=== PATIENT | male | born 1950 | race Caucasian/White ===

== ENCOUNTER 2021-07-17 13:25 | Outpatient (CLI) | payer OTHER, SELFPAY ==
--- NOTE | 2021-07-17 13:00 | DI.RAD_ITS ---
Exam(s) XR KNEE LT 3V AP,LAT,ZORAIDA EXAM: XR KNEE LT 3V AP,LAT,ZORAIDA CLINICAL HISTORY: knee pain. TECHNIQUE: 2D digital imaging was performed. Three views. COMPARISON: MR MRI - L LOWER EXT WO CONTRAST from 03/08/2014 FINDINGS: BONES: No acute fracture is present. No bony destructive lesion is seen. JOINTS: The knee is normally aligned. No joint effusion is seen. Moderate narrowing medial femoral ti bial joint. Minimal periarticular spurring. Remaining joint spaces well maintained. SOFT TISSUE: Vascular calcifications. IMPRESSION: Moderate degenerative changes of the medial femoral tibial joint. DATA REPOSITORY: RADIATION DOSE DELIVERED:
--- NOTE | 2021-07-17 13:00 | DI.RAD_ITS ---
Exam(s) XR KNEE RT 3V AP,LAT,ZORAIDA EXAM: XR KNEE RT 3V AP,LAT,ZORAIDA CLINICAL HISTORY: knee pain. TECHNIQUE: 2D digital imaging was performed. Three views. COMPARISON: CR XR KNEE LT 3V AP,LAT,ZORAIDA from 07/17/2021 FINDINGS: BONES: No acute fracture is present. No bony destructive lesion is seen. JOINTS: The knee is normally aligned. No joint effusion is seen. Moderate narrowing medial femoral ti bial joint space with minimal periarticular spurring. SOFT TISSUE: Normal. IMPRESSION: [id number] degenerative changes of the medial femoral tibial joint. DATA REPOSITORY: RADIATION DOSE DELIVERED:
== END 2021-07-17 13:26 | disposition home or self-care (01) ==
LOC: DIORS 13:25
PROVIDERS: PCP Family Medicine; Referring Provider Family Medicine; Visit Provider Physician Assistant
DX: M25.561 Pain in right knee (principal); M25.562 Pain in left knee; M17.0 Bilateral primary osteoarthritis of knee
CPT/HCPCS: 73562

== ENCOUNTER 2021-10-26 10:07 | Outpatient (CLI) | payer OTHER, SELFPAY ==
--- NOTE | 2021-10-26 09:45 | DI.RAD_ITS ---
Exam(s) XR SHOULDER RT COMPLETE 2+V EXAM: XR SHOULDER RT COMPLETE 2+V CLINICAL HISTORY: evaluation of pain in shoulder. TECHNIQUE: 2D digital imaging was performed of the right shoulder. Three images were obtained. AP, Y-view and axillary views were obtained. COMPARISON: No exams were available for comparison FINDINGS: BONES: No acute fracture is present. No bony destructive lesion is seen. JOINTS: No dislocation present. Mild degenerative changes are seen at the AC joint. SOFT TISSUE: Normal. IMPRESSION: Mild degenerative changes of the shoulders as described. DATA REPOSITORY: RADIATION DOSE DELIVERED:
== END 2021-10-26 10:08 | disposition home or self-care (01) ==
LOC: DIORS 10:07
PROVIDERS: PCP Family Medicine; Referring Provider Family Medicine; Visit Provider Physician Assistant
DX: M19.011 Primary osteoarthritis, right shoulder (principal)
CPT/HCPCS: 73030

== ENCOUNTER → 2022-06-14 08:28 | Outpatient (BNVA) | payer MEDICARE, SELFPAY | PROVIDERS: PCP Family Medicine; Referring Provider Family Medicine | DX: M75.81 Other shoulder lesions, right shoulder (principal); M75.21 Bicipital tendinitis, right shoulder | CPT/HCPCS: 20610; J1040 ==

== ENCOUNTER → 2022-11-19 04:01 | Outpatient (CLI) | payer MEDICARE, SELFPAY ==
--- NOTE | 2022-11-19 08:00 | DI.MRI_ITS ---
Exam(s) MR UPPER JOINT RT WO EXAM: MR UPPER JOINT RT WO CLINICAL HISTORY: ? rtc tear,rt rotator cuff tendonitis,m75.81,m75.21. TECHNIQUE: Multiplanar multisequence MRI was performed. COMPARISON: CR XR SHOULDER RT COMPLETE 2+V from 10/26/2021 FINDINGS: BONES: There is no fracture or contusion pattern. Nonspecific focus of hyperintense signal seen in th e humeral head. JOINTS: There are degenerative changes seen at the acromioclavicular joint. The glenohumeral joint i s normal. TENDONS: Supraspinatus: There is a full-thickness tear of the supraspinatus tendon anteriorly at its insertion site. Infraspinatus: Hyperintense signal is seen in the infraspinatus tendon suspicious for partial tear. Subscapularis: Unremarkable. Teres Minor: Unremarkable. Biceps and [place]: The biceps tendon is attenuated in size suspicious for at least a partial tear. MUSCLES: There is decrease in size and mild fatty atrophy of the supraspinatus muscle. The remaining muscles show normal signal and size. GLENOID LABRUM: The superior aspect of the labrum is irregular suspicious for degeneration. SOFT TISSUES: Unremarkable. LIGAMENTS: Unremarkable. OTHER: There is fluid in the subacromial subdeltoid bursa. IMPRESSION: 1. Findings of a full-thickness tear of the supraspinatus tendon with mild atrophy of the supraspinat us muscle. 2. Findings suspicious for partial tear of the infraspinatus tendon. 3. Findings suspicious for at least a partial tear of the biceps tendon. The biceps tendon appears a ttenuated within the bicipital groove. 4. Degeneration of the superior aspect of the labrum. 5. Degenerative changes seen at the acromioclavicular joint. DATA REPOSITORY:
== END ==
PROVIDERS: PCP Family Medicine; Visit Provider Student in an Organized Health Care Education/Training Program
DX: M75.121 Complete rotator cuff tear or rupture of right shoulder, not specified as traumatic (principal); M19.012 Primary osteoarthritis, left shoulder
CPT/HCPCS: 73221

== ENCOUNTER → 2022-11-27 15:03 | Outpatient (BNVA) | payer MEDICARE, SELFPAY | PROVIDERS: PCP Family Medicine; Referring Provider Family Medicine; Visit Provider Student in an Organized Health Care Education/Training Program | DX: M75.101 Unspecified rotator cuff tear or rupture of right shoulder, not specified as traumatic (principal); M19.011 Primary osteoarthritis, right shoulder; S46.211A Strain of muscle, fascia and tendon of other parts of biceps, right arm, initial encounter; X58.XXXA Exposure to other specified factors, initial encounter | CPT/HCPCS: 99214 ==

== ENCOUNTER 2023-01-17 09:23 | Day surgery (SDC) | payer MEDICARE, SELFPAY ==
[2023-01-17] VITALS (9 sets, daily range): BP systolic 107–157; BP diastolic 53–84; PULSE 54–68; RESP 13–20; TEMP 36.2–36.7; O2SAT 94–98; BMI 28.5
--- NOTE | 2023-01-17 07:19 | W.PM.DSUDISC ---
Date of service: 01/17/23 Time of Service: 16:00 Discharge Plan Disposition Patient Disposition: Home Condition: Stable Discharge Details Attending Provider: Manuel Guerrero Primary Care Provider: None,None Home Meds and New Rx's Prescriptions: New aspirin 81 mg tablet,delayed release (DR/EC) 81 mg PO DAILY 7 Days Qty: 7 0RF naproxen 250 mg tablet 250 - 500 mg PO BID PRNQty: 40 0RF Rx Instructions: take with a meal oxycodone 5 mg tablet 5 - 10 mg PO Q4H MDD 30 mg PRN (Reason: moderate to severe pain) Qty: 18 0RF Continued omeprazole 40 mg capsule,delayed release(DR/EC) 40 mg PO DAILY allopurinol 300 mg tablet 300 mg PO DAILY simvastatin 20 mg tablet 20 mg PO DAILY amlodipine 5 mg tablet 5 mg PO DAILY celecoxib [Celebrex] 200 mg capsule 200 mg PO DAILY PRN (Reason: pain) Qty: 30 3RF Discharge Instructions Additional Instructions: Surgery: Right shoulder arthroscopy with extensive debridement, distal clavicle excision, and subacromial decompression; partial supraspinatus tearing, previous proximal biceps rupture. Activity: You should gradually increase range of motion motion and use of your shoulder. You may use your shoulder for light activities. No heavy lifting, reaching overhead, or lifting away from body for approximately 6 weeks. You may use the sling whenever you are out of the house for a few weeks. At home it is best to remove the sling and rest the arm on a pillow at your side or support the operative side with your other hand. A physical therapy prescription will be sent electronically to start in about 3 weeks Prescriptions: Aspirin 81 mg take 1 daily to prevent a blood clot for 7 days Naproxen 250 mg take 1-2 every 12 hours with a meal as needed for moderate pain (do not use at the same time as Celebrex) Oxycodone 5 mg take 1-2 every 4-6 hours as needed for severe pain You may use [id number] Tylenol (acetaminophen) as needed for mild pain. These pain medications may be taken all at once or in different combinations as needed. Also, recommend Colace (docusate) as a stool softener as surgery and pain medicine cause constipation. You may try imfu-[id number] diphenhydramine (Benadryl) 25-50 mg nightly as a sleep aid Dressings: Remove shoulder bandage after 3 days. Leave the sticky Steri-Strips in place until they fall off or remove them after you shower. Cover the incisions with Band-Aids or leave them open to air. You may shower after 5 days. Follow-up: 10-[address] Guerrero You may take off the leg compression stockings this evening at home. You may also leave them on a few days longer if you have a history of leg swelling or edema. Let us know right away if you develop any redness, drainage, fevers, chest pain, or trouble breathing. Do not drink alcohol or drive for at least 24 hours after anesthesia. Please call the office during business hours with any questions or concerns. Discharge Orders Discharge Orders: Discharge Order (Routine); Ordered 01/17/23 Ordered By: Manuel Guerrero DS: Diagnosis Discharge Diagnosis (1) Arthritis of right acromioclavicular joint: Status: Acute (2) Rupture of right proximal biceps tendon: Status: Acute (3) Right rotator cuff tear: Status: Acute
--- NOTE | 2023-01-17 07:19 | W.PM.OP ---
Date of service: 01/17/23 Time of Service: 12:00 Operative Note Operative Note DATE OF PROCEDURE: 01/17/23 PRE-OP DIAGNOSIS: Right: 1. Rotator cuff tear 2. AC joint arthritis 3. Proximal biceps rupture 4. Impingement POST-OP DIAGNOSIS: same PROCEDURE: Right: 1. Arthroscopic distal clavicle excision, CPT# 10009. This involved arthroscopically exposing the underside of the acromioclavicular joint, smoothing out bone spurs, and removing approximately 5 mm of the distal clavicle and acromion so there was no bone left engaging at the joint or on the bursal rotator cuff. 2. Extensive debridement, CPT# 95641. This involved using arthroscopic hand instruments, power instruments, and radiofrequency instruments to debride areas of anterior and posterior labral tearing, SLAP tearing, rotator interval synovitis, and partial subscapularis articular tearing. Also involve removal of large AC joint subacromial cyst. 3. Subacromial decompression with partial acromioplasty, CPT# 63278. This involved using arthroscopic power instruments and a radiofrequency wand to complete a bursectomy and smooth the undersurface of the acromion. The blood and plasma laboratory assistant was medically required in order to help assist in techniques above, which require positioning the arm, holding the arthroscope, and manipulating multiple instruments and sutures at the same time. This cannot be done without the help of an experienced blood and plasma laboratory assistant. SURGEON: Manuel Guerrero DIETARY CLERK: Ramin Donnelly ANESTHESIA TYPE: General LMA/ETT and Primary Nerve Block Refer to Anesthesia Record ESTIMATED BLOOD LOSS: 10 PATHOLOGY: none sent COMPLICATIONS: None Patient was transported to: PACU Patient's condition: stable Implants: None Indications: The patient was diagnosed with the above conditions and appropriately indicated for surgical intervention. Please see complete medical record for details. Findings: Exam under anesthesia: Full range of motion, no instability Glenohumeral joint: Significant global moderately significant degenerative changes involving anterior labral fraying, posterior labral fraying, superior labral SLAP tear fraying, significant superior and anterior rotator interval synovitis, upper margin subscapularis versus biceps sling tissue tearing. Largely intact articular supraspinatus. Moderate joint space narrowing chondromalacia without any loose cartilage flaps. Subacromial space: Significant AC joint cyst with compression on the supraspinatus. Impinging distalmost clavicle on the bursal rotator cuff medially. Irregular undersurface acromion also with impingement medially on the bursal rotator cuff. Largely intact bursal supraspinatus without any significant structural tearing, injection and partial tearing laterally and centrally, unable to probe into any significant tear. Procedure Description: In the operating room, general anesthesia was induced. Bilateral shoulders were examined. The patient was positioned in the beachchair position. All bony prominences were well-padded. Preoperative antibiotics were administered. The shoulder was prepped and draped in the usual sterile fashion. The correct patient, procedure, and side of the procedure were all verified prior to incision. Starting through the posterior portal a standard complete diagnostic arthroscopy was performed of the glenohumeral joint including inspection of the long head of the biceps, anterior and superior labrum, subscapularis tendon, supraspinatus and infraspinatus tendons, and axillary recess. The glenoid and humeral head cartilage as well as the posterior labrum were inspected from an anterior viewing portal. Significant findings and interventions noted above. Of note, significant time spent was debriding anterior posterior labrum, SLAP tear, and removing synovitis recreating a glenohumeral joint without significant inflamed and impinging tissue. The biceps sling CHL SHL was also debrided back exposing a likely intact subscapularis. Prior biceps rupture without biceps tendon present in the joint. Starting through the posterior portal, the arthroscope was directed into the subacromial space. A lateral 50 yard line lateral portal was created. A combination of power instruments and a radiofrequency ablator were used to debride bursitis anteriorly, posteriorly, and laterally as well as expose and smooth bone spurring on the undersurface of the acromion. The coracoacromial ligament was partially released. The bursectomy was completed viewing laterally and working from posteriorly and the rotator cuff was thoroughly inspected with findings noted above. There was no significant supraspinatus tear, checked thoroughly given the MRI findings laterally, decision was made to omit any partial thickness repair given largely healthy appearance after removal of AC joint cyst and unable to probe into the tendon. The anterior portal was redirected towards the undersurface of the AC joint. A shaver and electrocautery device were used to clear soft tissue from the undersurface of the AC joint. The large AC joint cyst was approached on its margins from lateral to medial working with the mechanical shaver and switching stick to work around the margins of the cyst and adjacent tissue. It was resected nearly entirely with the smallest remnant far medially. The undersurface acromion had a significant bone spur at the AC joint was smoothed with the bur, the distal aspect the clavicle was abraded and smooth at the AC joint, there is at least 5 mm space between the distal clavicle and the medial aspect of the acromion. The undersurface of the distal clavicle was still impinging the medial bursal rotator cuff and was smooth and resected to avoid this problem with the bur. Care was taken to ensure there was no bone left impinging at the AC joint, onto the bursal rotator cuff, and the cyst had been adequately resected. The shoulder was drained of arthroscopic fluid. All portal sites were copiously irrigated. These incisions were closed using 3-0 Monocryl in a buried fashion and then covered with Mastisol, Steri-Strips, Xeroform, dry gauze, and ABDs. The dressings were covered and secured with Medipore tape. The operative extremity was placed into a sling for immobilization. The patient awoke from anesthesia without complication and was transferred to the recovery room in a stable condition.
[2023-01-17] MEDS: Lactated Ringers 1,000 ML 30 ML IV (10:25)
--- NOTE | 2023-01-17 11:47 | W.ANESPRE ---
General Info Date of Service Date Performed: 01/17/23 Height: 5 ft 7.5 in Weight: 83.9 kg Body Mass Index (BMI): 28.5 Surgical Procedure: Operation Date: 01/17/23 12:10 Proposed Procedure Side Surgeon p Shoulder Rotator Cuff Arthroscopic,Extensive Debridement, Subacromial Decompression, Distal Clavicle Excision Right Manuel Guerrero MD Meds Allergies and Home Medications Allergies Allergy/AdvReac Type Severity Reaction Status Date / Time No Known Allergies Allergy Verified 01/17/23 10:06 Home Medication Medication Instructions Recorded allopurinol 300 mg tablet 300 mg PO DAILY 07/17/21 amlodipine 5 mg tablet 5 mg PO DAILY 07/17/21 omeprazole 40 mg capsule,delayed 40 mg PO DAILY 07/17/21 release simvastatin 20 mg tablet 20 mg PO DAILY 07/17/21 celecoxib 200 mg capsule (Celebrex) 200 mg PO DAILY PRN pain #30 caps 01/15/22 Current Visit Medications: Current Medications Generic Name Dose Route Start Last Admin Trade Name Freq PRN Reason Stop Dose Admin Droperidol 0.625 mg 01/17/23 10:24 Droperidol 5 Mg/2 Ml Vial IVP 02/16/23 10:23 DIRECTED PRN Nausea Ephedrine Sulfate 0 mg 01/17/23 10:24 Ephedrine 25 Mg/5 Ml Syringe IVP 02/16/23 10:23 DIRECTED PRN Fentanyl 0 mcg 01/17/23 10:24 Fentanyl 100 Mcg/2 Ml Vial IVP 02/16/23 10:23 DIRECTED PRN Hydromorphone HCl 0 mg 01/17/23 10:24 Hydromorphone 2 Mg/Ml Syr IVP 02/16/23 10:23 DIRECTED PRN Ringer's Solution 1,000 mls @ 30 mls/hr 01/17/23 06:00 01/17/23 10:25 IV 02/15/23 23:59 30 mls/hr INFUSION SHAR Administration Cefazolin Sodium/Dextrose 2 gm in 50 mls @ 100 mls/hr 01/17/23 06:00 Ancef Duplex IVPB 01/17/23 16:00 PREOP SHAR IV Miscellaneous Supplies 1 each 01/17/23 06:00 Iv Access IV 02/15/23 23:59 DIRECTED SHAR Oxycodone HCl 0 mg 01/17/23 07:19 Oxycodone 5 Mg Tab PO 02/16/23 07:18 Q3H PRN PRN Pain Sodium Chloride 0 ml 01/17/23 06:00 Normal Saline Flush 10 Ml Syr IV 02/15/23 23:59 PRN PRN Sodium Chloride 0 ml 01/17/23 06:00 Normal Saline 10 Ml Vial IJ 02/15/23 23:59 DIRECTED PRN Sterile Water 0 ml 01/17/23 06:00 Water,Injection,Sterile 10 Ml Vial IJ 02/15/23 23:59 DIRECTED PRN PFSH Active Problems Active Problems: Problem Status Onset Code Arthritis of right acromioclavicular joint M19.011 Rupture of right proximal biceps tendon S46.211A Right rotator cuff tear M75.101 Primary osteoarthritis of left knee M17.12 Primary osteoarthritis of right knee M17.11 Medical History Medical History Right rotator cuff tendonitis Steroid injection: 06/14/2022; 10/26/2021 Tendonitis of long head of biceps brachii of right shoulder Hyperlipidemia HTN (hypertension) Gout Surgical History Surgical History (Updated 01/16/23 @ 14:02 by Emery Weber) History of surgery on wrist Tobacco Smoking/Tobacco Use Status: Current-Occasional Tobacco Type: cigars Alcohol Alcohol Intake: current Alcohol intake frequency: 0-2 drinks per day Alcohol type: wine and hard liquor Substance Use Substance use: Never Substance use type: does not use Vital Signs and Lab Results Vital Signs Most Recent Vital Signs in EMR: Most Recent Vital Signs Temp Pulse Resp BP Pulse Ox 36.7 C 67 18 157/65 H 98 01/17/23 09:40 01/17/23 09:40 01/17/23 09:40 01/17/23 09:40 01/17/23 09:40 Lab Results Blood Type / Crossmatch: No Data to Display Complete Blood Count: No Data to Display Complete Metabolic Panel: No Data to Display Liver Function Panel: No Data to Display Coagulation Panel: No Data to Display Cardiac Panel: No Data to Display Arterial Blood Gas: No Data to Display Venous Blood Gas: No Data to Display Pancreas Panel: No Data to Display Thyroid Panel: No Data to Display Infectious Disease: No Data to Display Blood Cultures: No Data to Display Toxicology Panel: No Data to Display Anesthesia Assessment and Plan Anesthesia History Personal History: No History of Anesthesia Complications Family History: No Family History of Anesthesia Complications Exercise Tolerance Exercise Tolerance: Metabolic Equivalents>4 Pertinent Negatives Pertinent Negatives: No Symptoms of GERD Cardiac & Pulmonary Exam Cardiac Exam: Normal S1/S2 Heart Sounds Pulmonary Exam: Clear Bilateral Breath Sounds Implantable Cardiac Device Does patient have a Pacemaker or an ICD?: No Airway Exam Known Difficult Airway: No Mallampati Class: 2 Mouth Opening: Normal (> 3cm) Thyromental Distance: Greater than 3 cm Neck Range of Motion: Full ROM Neck Circumference: Normal Teeth Condition: Normal Dentition ASA Classification ASA Score: ASA 2 Emergency Case?: No NPO Status NPO Status: NPO Clears >2 hours, Solids >8 hours Anesthesia Plan Resuscitation Status: Full Code Anesthesia Technique: General Anesthesia Airway Planned: Endotracheal Tube Monitors Used: Standard Monitors
[2023-01-17] MEDS: ceFAZolin 2 GM/50 ML BAG IVPB (12:27)
--- NOTE | 2023-01-17 13:10 | W.ANESNERVE ---
Nerve Block Single Injection Procedure Date and Time Date Performed: 01/17/23 Procedure Start: 12:03 Location Where Procedure Performed Procedure Location: Day Surgery Unit Reason Performed: Postoperative Analgesia Requesting Provider: Manuel Guerrero Timeout Performed Timeout Performed: Yes Monitoring Used ECG, Blood Pressure, SpO2, ETCO2 and See EMR for corresponding vital signs Sterility Sterility: Hand Hygiene, Surgical Cap, Surgical Mask, Sterile Gloves, Eye Protection and Chlorhexidine Sedation Given During Procedure Sedation Given (Indicate Dose Given): Versed IV (Documented in Anesthesia record) Dose:: 2mg IVP Patient Mental Status Patient Mental Status: Sedate with meaningful communication Nerve Block 1st Nerve Block: Laterality: Right Block Type: Interscalene Ultrasound Image Saved?: Yes Needle / Catheter Used: 80mm SonoPlex II Local Anesthetic Bolus (Indicate Dose Given): Lidocaine used for local infiltration of skin, Injected in 3-5ml increments after negative blood aspiration, Bupivacaine 0.5% Dose:: 0.5%/15cc (75mg) and Exparel Dose:: 1.3%/10cc (133mg) Additives (Indicate Dose Given): Epinephrine to make 1:200,000 (5mcg/ml) Dose:: 5mcg/cc (1:200,000) 75mcg Ultrasound: Sterile probe cover and gel used Nerve Stimulator: Not Used Paresthesia: None Procedure Tolerated: No Complications and Patient tolerated well Procedure Outcome: Successful Performed By: Dean Linares
[2023-01-17] MEDS: EPINEPHrine 10 MG/10 ML ML (13:54)
--- NOTE | 2023-01-17 14:56 | W.ANESPOSTOP ---
Postoperative Evaluation Date, Time and Location Date Performed: 01/17/23 Time Performed: 14:56 Patient Location: PACU Vital Signs Most Recent Imported Vital Signs: Most Recent Vital Signs Temp Pulse Resp BP Pulse Ox 36.6 C 63 14 123/84 98 01/17/23 14:40 01/17/23 14:40 01/17/23 14:40 01/17/23 14:40 01/17/23 14:40 Pain Score Most Recent Pain Score: Most Recent Pain Score Pain Level 0 01/17/23 11:55 Assessment Mental Status: Awake (Alert & Oriented to Patient Baseline) Airway and Respiratory Function: Patent airway with normal (patient baseline) respiratory exam Cardiovascular Function: Hemodynamically Stable Hydration Status: Adequately Hydrated Nausea & Vomiting: No Nausea or Vomiting Pain: Pt. Denies Any Pain Peripheral Nerve Block: Regional nerve block not resolved at time of post operative discharge
== END 2023-01-17 16:55 | disposition home or self-care (01) ==
PROVIDERS: Visit Provider Student in an Organized Health Care Education/Training Program
PROC: (CPT 29827; principal; 2023-01-17 12:00)
DX: M19.011 Primary osteoarthritis, right shoulder (principal); S46.211A Strain of muscle, fascia and tendon of other parts of biceps, right arm, initial encounter; M17.12 Unilateral primary osteoarthritis, left knee; X58.XXXA Exposure to other specified factors, initial encounter
CPT/HCPCS: 29827; 29824; 29823; 29826; 64415; 76942; J0131; J0171; J0690; J1100; J1885; J2001; J2250; J2371; J2405; J2704

== ENCOUNTER → 2023-01-29 10:23 | Outpatient (BNVA) | payer MEDICARE, SELFPAY | PROVIDERS: PCP Nurse Practitioner Pediatrics; Referring Provider Nurse Practitioner Pediatrics; Visit Provider Student in an Organized Health Care Education/Training Program | DX: S46.211D Strain of muscle, fascia and tendon of other parts of biceps, right arm, subsequent encounter (principal); X58.XXXD Exposure to other specified factors, subsequent encounter ==

== ENCOUNTER 2023-02-26 09:22 | Outpatient (CLI) | payer MEDICARE, SELFPAY ==
--- NOTE | 2023-02-26 08:15 | DI.RAD_ITS ---
Exam(s) XR SHOULDER RT COMPLETE 2+V EXAM: XR SHOULDER RT COMPLETE 2+V CLINICAL HISTORY: right shoulder f/u. TECHNIQUE: 2D digital imaging was performed. COMPARISON: CR XR SHOULDER RT COMPLETE 2+V from 10/26/2021 FINDINGS: Two views. No evidence of fracture or dislocation. No soft tissue calcifications in the non diminished subacrom ial space. Mild degenerative changes evident. The appearance is similar to September 2021. Bone density normal. No osseous lesions. Coracoid process is intact. IMPRESSION: As above. No radiographic change compared to 10/26/2021. DATA REPOSITORY: RADIATION DOSE DELIVERED:
== END 2023-02-26 09:23 | disposition home or self-care (01) ==
LOC: DIORS 09:23
PROVIDERS: PCP Nurse Practitioner Pediatrics; Referring Provider Nurse Practitioner Pediatrics; Visit Provider Student in an Organized Health Care Education/Training Program
DX: S46.211A Strain of muscle, fascia and tendon of other parts of biceps, right arm, initial encounter (principal); M19.011 Primary osteoarthritis, right shoulder; M75.101 Unspecified rotator cuff tear or rupture of right shoulder, not specified as traumatic; X58.XXXA Exposure to other specified factors, initial encounter; Y93.B9 Activity, other involving muscle strengthening exercises
CPT/HCPCS: 73030

== ENCOUNTER → 2023-04-09 08:28 | Outpatient (BNVA) | payer MEDICARE, SELFPAY | PROVIDERS: PCP Nurse Practitioner Pediatrics; Referring Provider Nurse Practitioner Pediatrics; Visit Provider Student in an Organized Health Care Education/Training Program | DX: M19.011 Primary osteoarthritis, right shoulder (principal); M75.101 Unspecified rotator cuff tear or rupture of right shoulder, not specified as traumatic; S46.211D Strain of muscle, fascia and tendon of other parts of biceps, right arm, subsequent encounter; X58.XXXD Exposure to other specified factors, subsequent encounter | CPT/HCPCS: 99213 ==

== ENCOUNTER → 2023-04-18 03:51 | Outpatient (CLI) | payer MEDICARE, SELFPAY ==
--- NOTE | 2023-04-18 08:20 | DI.MRI_ITS ---
Exam(s) MR UPPER JOINT RT WO EXAM: MR UPPER JOINT RT WO CLINICAL HISTORY: R SHOULDER PAIN,rt rotator cuff tear,m75.101. TECHNIQUE: Multiplanar multisequence MRI was performed. COMPARISON: MRI right shoulder 19 November 2022. Plain films 26 February 2023. FINDINGS: BONES: There is no fracture or contusion pattern. No change small high signal focus in the humeral head. JOINTS:The acromioclavicular joint contains some fluid and shows mild spurring. The glenohumeral feroz nt shows mild degenerative changes. Minimal fluid. TENDONS: Supraspinatus: Diffusely thickened appearance with intermediate signal consistent with tendinosis.. No change in appearance of the full-thickness tear anteriorly with retraction of fibers. Infraspinatus: Mildly increased signal. No visible focal tear. Subscapularis: Unremarkable. Teres [place]: Unremarkable. Biceps and [place]: Biceps tendon is again noted to be severely attenuated proximally suspicious for s evere partial tear. Appearance appears unchanged. MUSCLES: Moderate to severe fatty atrophy of the supraspinatus, unchanged. GLENOID LABRUM: Degenerative changes. No focal tear. SOFT TISSUES: Mild anterior soft tissue edema. OTHER: Subacromial and subdeltoid bursae show moderate fluid.. IMPRESSION: No change in appearance of supraspinatus tendinosis with anterior full-thickness tear and muscle atro phy. No change in appearance of infraspinatus tendinosis. No change in appearance of severe attenuation of the proximal biceps tendon. No new findings. DATA REPOSITORY:
== END ==
PROVIDERS: PCP Nurse Practitioner Pediatrics; Visit Provider Student in an Organized Health Care Education/Training Program
DX: M25.511 Pain in right shoulder (principal)
CPT/HCPCS: 73221

== ENCOUNTER → 2023-04-24 08:25 | Outpatient (BNVA) | payer MEDICARE, SELFPAY | PROVIDERS: PCP Nurse Practitioner Pediatrics; Referring Provider Nurse Practitioner Pediatrics; Visit Provider Student in an Organized Health Care Education/Training Program | DX: M19.011 Primary osteoarthritis, right shoulder (principal); M75.101 Unspecified rotator cuff tear or rupture of right shoulder, not specified as traumatic; S46.211D Strain of muscle, fascia and tendon of other parts of biceps, right arm, subsequent encounter; X58.XXXD Exposure to other specified factors, subsequent encounter | CPT/HCPCS: 99214 ==

== ENCOUNTER 2023-05-02 10:21 | Day surgery (SDC) | payer MEDICARE, SELFPAY ==
--- NOTE | 2023-05-02 07:20 | W.PM.DSUDISC ---
Date of service: 05/02/23 Time of Service: 15:00 Discharge Plan Disposition Patient Disposition: Home Discharge Details Attending Provider: Manuel Guerrero Primary Care Provider: Coleen Amato Home Meds and New Rx's Prescriptions: No Action omeprazole 40 mg capsule,delayed release(DR/EC) 40 mg PO DAILY allopurinol 300 mg tablet 300 mg PO DAILY simvastatin 20 mg tablet 20 mg PO HS amlodipine 5 mg tablet 5 mg PO DAILY Discharge Orders Discharge Orders: Discharge Order (Routine); Ordered 05/02/23 Ordered By: Ramin Donnelly
[2023-05-02 10:42] VITALS: BP 146/75; PULSE 75; RESP 16; TEMP 36.4; O2SAT 96
[2023-05-02] MEDS: Lactated Ringers 1,000 ML 30 ML IV (11:55)
--- NOTE | 2023-05-02 12:48 | PDOC.ANES ---
Date of service: 05/02/23 Time of Service: 12:48 Anesthesia Note Report Anesthesia Note: New onset murmur. Confirmed by DSU RN Alena, myself, and Yumiko Trevino. Appears to be louder in the mitral zone but was heard in all auscultation points. Not appreciated in any other note, patient has no history of murmur (normal S1/S2 in all other notes). Patient is postponed until Echocardiogram and cards consult can be obtained. Discussed with patient and all questions answered.
--- NOTE | 2023-05-02 16:21 | NUR.NOTE ---
Nursing Note: [id number] This RN auscultated heart murmur not noted prior in patient's chart. Anesthesia notified to assess further. After assessment, patient postponed pending cardiac clearance.
== END 2023-05-02 10:22 | disposition home or self-care (01) ==
LOC: SUR 10:21
PROVIDERS: PCP Nurse Practitioner Pediatrics; Visit Provider Student in an Organized Health Care Education/Training Program
DX: Z53.09 Procedure and treatment not carried out because of other contraindication (principal)
CPT/HCPCS: J0665; J1100; J2001; J2405; J2704

== ENCOUNTER 2023-05-09 10:58 | Outpatient (CLI) | payer MEDICARE, SELFPAY ==
--- NOTE | 2023-05-09 11:15 | RT.EKG_ITS ---
APPROVED REPORT Exam: Resting ECG Reason for Exam: baseline Patient Location: O HR:74 bpm ECG Measurements Heart Rate 74 AXIS MS 180 P 23 QRSd 93 QRS -40 QT 391 T 27 QTc 434 Conclusion Sinus rhythm...normal P axis, V-rate 50- 99 Left anterior fascicular block...axis(240,-40), init forces inf Abnormal R-wave progression, late transition...QRS area<0 in V5/V6 Left ventricular hypertrophy...multiple voltage criteria I have reviewed and interpreted ECG and agree with software generated interpretation.
== END 2023-05-09 10:59 | disposition home or self-care (01) ==
LOC: DI.CARD 11:27
PROVIDERS: PCP Nurse Practitioner Pediatrics; Referring Provider Nurse Practitioner Pediatrics; Visit Provider Internal Medicine Interventional Cardiology
DX: R01.1 Cardiac murmur, unspecified (principal)
CPT/HCPCS: 93010

== ENCOUNTER → 2023-05-09 10:58 | Outpatient (BNVA) | payer MEDICARE, SELFPAY | PROVIDERS: PCP Nurse Practitioner Pediatrics; Referring Provider Nurse Practitioner Pediatrics; Visit Provider Internal Medicine Interventional Cardiology | DX: I10 Essential (primary) hypertension (principal); E78.5 Hyperlipidemia, unspecified; Z01.810 Encounter for preprocedural cardiovascular examination; R01.1 Cardiac murmur, unspecified | CPT/HCPCS: 93005; 99213 ==

== ENCOUNTER → 2023-05-17 01:53 | Outpatient (CLI) | payer MEDICARE, SELFPAY ==
--- NOTE | 2023-05-17 07:00 | DI.US_ITS ---
APPROVED REPORT EXAM: Comprehensive 2D, Doppler, and color-flow Echocardiogram Patient Location: Out-Patient Oenologist: Cathy Fung RDCS ([facility]) Indications: Surgical clearance, Heart Murmur Other Information Study Quality: Good Conclusion Normal left ventricular wall thickness and chamber size. Ejection fraction is 60%. Wall motion is n ormal. Diastolic function is normal for age Normal right ventricular size and function Both atria are normal in size There are no structural valvular abnormalities There is trace to mild aortic regurgitation, mild mitral and trace tricuspid regurgitation Estimated right ventricular systolic pressure is 24 mm Wall motion Left Ventricle The left ventricle is normal size. The left ventricular systolic function is normal. The left ventric ular ejection fraction is within the normal range. There is normal left ventricular wall thickness. T here is normal LV segmental wall motion. There is no ventricular septal defect visualized. LVEF is 60 %. Right Ventricle The right ventricle is normal size. The right ventricular systolic function is normal. Atria The left atrium size is normal. The right atrium size is normal. The interatrial septum is intact wit h no evidence for an atrial septal defect. Aortic Valve Aortic valve is trileaflet. There is no aortic valvular stenosis. Trace to mild aortic regurgitation . Mitral Valve The mitral valve is normal in structure. No evidence of mitral valve stenosis. Trace to mild mitral r egurgitation. Tricuspid Valve The tricuspid valve is normal in structure. There is no tricuspid valve stenosis. Trace tricuspid reg urgitation. The RVSP is 24.2 mmHg. Pulmonic Valve The pulmonary valve is normal in structure. There is no pulmonic valvular stenosis. Trace pulmonic re gurgitation. Great Vessels The aortic root is normal in size. The ascending aorta is mildly dilated. Aortic arch is not well vis ualized. IVC is normal in size and collapses >50% with inspiration. Pericardium There is no pericardial effusion. 2D Dimensions IVSD d PLAX 1.03 cm M: 0.6-1.2 Ao Root d 3.46 cm M: 3.1 - 3.7 LVPW d PLAX 1.01 cm M: 0.6 - 1.2 Ao Asc Diam d 3.58 cm M: 2.6 - 3.4 LVID d PLAX 4.85 cm M: 4.2 - 5.8 LVDs 3.21 cm M: 2.5 - 4.0 LV EF Teichholz 62.4 % FS 33.73 % LV EDV (Teich) 110.2 mL LV ESV (Teich) 41.4 mL Auto EF LV EDV A4C 99.1 mL LV EDV A2C 115.1 mL LV EDV BP 108.1 mL LV ESV A4C 43.4 mL LV ESV A2C 49.2 mL LV ESV BP 46.3 mL LVEF(%) A4C 56.2 % LVEF(%) A2C 57.2 % LVEF(%) BP 57.2 % LV SV A4C 55.7 ml LV SV A2C 65.9 ml LV SV BP 61.9 ml LV CO A4C 3.9 L/min LV CO A2C 4.5 L/min LV CO BP 4.2 L/min HR A4C 69.91 BPM HR A2C 68.84 BPM LV EDV Index (BP) LV Strain Long Pk Overal Avg (s) 18.01 RV Strain Global Peak Long. Strain A4C 9.87 Global Peak Long. Strain A4C FW 3.96 LA Volume LA Length A4C 4.7 cm LA Length A2C 5.2 cm LA Area A4C s 13.62 cm2 LA Area A2C s 19.35 cm2 LA Vol A4C A-L 33.85 mL LA Vol A2C A-L 61.06 mL LA Vol Biplane A-L 48.1 mL LA Vol/BSA A4C A-L LA Vol/BSA A2C A-L LA Vol/BSA BP A-L 23.8 mL/m2 LA Vol A4C MOD 31.2 mL LA Vol A2C MOD 57.1 mL LA Vol BP MOD 44.5 mL RA Volume RA Area A4C 15.1 cm2 RA ESV A4C (A-L) 39.3mL RA Vol/BSA A4C A-L RA Length A4C 4.9 cm RA ESV A4C (MOD) 37.8mL LV Diastology MV E' medial 0.070 (>0.07 m/s) MV E Vmax 0.87 (0.4-1.3 m/s) MV E/E' MED 12.45 (<14) MV A Vmax 1.00 (0.4-1.3 m/s) MV E' lateral 0.080 (>0.1 m/s) E/A Ratio 0.9 MV E/E' LAT 10.83 (<14) MV E' Average 0.075 m/s MV E/E'(average) 11.58 Aortic Valve AoV Vmax 1.93 m/s LVOT Vmax 1.15 m/s AoV Peak Grad 27.6 mmHg LVOT Peak Grad 5.2 mmHg AoV Area (Vmax) 2.11 cm2 LVOT VTI 0.286 m AoV VTI 0.408 m LVOT Mean Grad 3.7 mmHg AoV Mean Wiley. 1.28 m/s LVOT SV 101.73 mL AoV Mean Grad 7.6 mmHg LVOT Diam s 2.10 cm AoV Area (VTI) 2.50 cm2 AV Regurg Peak Gr. 40.40 mmHg Velocity Ratio 0.60 AR Decel [place] 0.9m/sec2 AR DT 3556 msec AR PHT 1031 msec AR Vmax 3.18 m/s Mitral Valve MV DT 400 (160-240 msec) MV Vmax TIPS 0.92 m/s MV Mean Grad 1.4 (<2mmHg) MV VTI 0.307 m Pulmonary Valve PV Vmax 1.13 (0.5-1.5 m/s) RVOT Vmax 0.85 m/s PV Peak Grad 5.1 mmHg RVOT Peak Gr. 2.9 mmHg PV Mean Wiley 0.84 m/s RVOT VTI 0.175 m PV Mean Grad 3.1 mmHg RVOT Mean Gr. 1.6 mmHg Tricuspid Valve RA Pressure 3.00 mmHg TR Vmax 2.30 m/s TV S' 0.17 m/s TR Peak Grad 21.2 mmHg RVSP (TR) 24.2 mmHg
== END ==
PROVIDERS: PCP Nurse Practitioner Pediatrics; Visit Provider Student in an Organized Health Care Education/Training Program
DX: R01.1 Cardiac murmur, unspecified (principal)
CPT/HCPCS: 93306

== ENCOUNTER 2023-05-23 09:22 | Day surgery (SDC) | payer MEDICARE, SELFPAY ==
[2023-05-23] VITALS (9 sets, daily range): BP systolic 100–156; BP diastolic 42–67; PULSE 69–75; RESP 15–17; TEMP 36.4–37.2; O2SAT 93–97; BMI 30.5
--- NOTE | 2023-05-23 07:24 | W.PM.OP ---
Date of service: 05/23/23 Time of Service: 14:00 Operative Note Operative Note DATE OF PROCEDURE: 05/23/23 PRE-OP DIAGNOSIS: Right: 1. Complex rotator cuff tear POST-OP DIAGNOSIS: same PROCEDURE: Right: 1. Massive rotator cuff repair, CPT# 00543. This involved repair of the subscapularis, supraspinatus, and infraspinatus using anchors and sutures to reattach the rotator cuff back to the footprint of the lesser and greater tuberosity. 2. Extensive debridement, CPT# 75186. This involved using arthroscopic hand instruments, power instruments, and radiofrequency instruments to debride significant complex delaminated articular supraspinatus tearing, debride anterior and rotator interval adhesions, debride the anterior, superior, and posterior labrum. Release adhesions about the rotator interval and superior glenohumeral joint. Release adhesions between the bursal rotator cuff acromion and distal clavicle. The staffing assistant was medically required in order to help assist in techniques above, which require positioning the arm, holding the arthroscope, and manipulating multiple instruments and sutures at the same time. This cannot be done without the help of an experienced staffing assistant. SURGEON: Manuel Guerrero RESIDENTIAL CONSTRUCTION INSTRUCTOR: Ramin Donnelly ANESTHESIA TYPE: Local By Surgeon, General LMA/ETT and Primary Nerve Block Refer to Anesthesia Record ESTIMATED BLOOD LOSS: 5 PATHOLOGY: none sent COMPLICATIONS: None Patient was transported to: PACU Patient's condition: stable Implants: Arthrex: 4.75mm SwiveLocks x 2 and 5.5mm SL x1 Indications: The patient was diagnosed with the above conditions and appropriately indicated for surgical intervention. Please see complete medical record for details. Findings: Exam under anesthesia: Full range of motion, no instability Glenohumeral joint: Worsened of previous subscapularis tendon tear with more moderately sized mid to upper lateral footprint tearing and involvement. Recurrent anterior superior and posterior labral fraying tearing. Significant rotator interval synovitis. Significant complex articular sided delaminated supraspinatus tendon tearing and capsulitis. Intact other layers of the supraspinatus without clear connection to the bursal space. Subacromial space: Moderate medial rotator cuff acromion and distal clavicle bursal scarring. Thinly intact bursal supraspinatus. Once this veil of tissue localized centrally to anterior, as shown on the MRI, was elevated it revealed the known large complex delaminated nearly complete supraspinatus and partial infraspinatus tendon tearing. Procedure Description: In the operating room, general anesthesia was induced. Bilateral shoulders were examined. The patient was positioned in the beachchair position. All bony prominences were well-padded. Preoperative antibiotics were administered. The shoulder was prepped and draped in the usual sterile fashion. The correct patient, procedure, and side of the procedure were all verified prior to incision. 0.25% bupivacaine containing epinephrine was infiltrated about the planned portals. Starting through the posterior portal a standard complete diagnostic arthroscopy was performed of the glenohumeral joint including inspection of the long head of the biceps, anterior and superior labrum, subscapularis tendon, supraspinatus and infraspinatus tendons, and axillary recess. The glenoid and humeral head cartilage as well as the posterior labrum were inspected from an anterior viewing portal. Significant time was spent debriding the rotator interval synovitis, releasing anterior capsular adhesions, contouring the anterior superior and posterior labrum as well as debriding the superior capsulitis. A rigid cannula was inserted anteriorly, the subscapularis tear was evaluated and good quality for repair. It did seem relatively fresh and not chronic like the complex degenerative superior rotator cuff tissue. The exposed lesser tuberosity was prepared with a rasp. The 90 degree lasso used to shuttle a FiberTape around the body of the tear, which was secured to an anterior 4.75 mm knotless SwiveLock anchor with good tissue hold and reduction to the lesser tuberosity. The knotless remaining suture was then shuttled through the anterior lateral corner of the subscapularis and secured back through the anchor eyelet mechanism completing the repair, which was stable through probing and external rotation. There was no restriction to motion. Significant time was then spent evaluating and discerning the best treatment for the highly complex, chronic and degenerative supraspinatus tendon tear considering the patient high function but advanced age. The arthroscope was directed into the subacromial space and bursal adhesions were released. I cannula was left in the posterior portal in the glenohumeral joint to work [id number]. Liberator and elevators were used laterally after spinal needle localization to reveal the known high-grade supraspinatus tear, with the supraspinatus being elevated from lateral to medial taking care to preserve tendon length. After the thin veil of lateral supraspinatus was released it did reveal the large full-thickness severity of the tear. The articular sided delaminated defect, as seen on MRI, was complex and retracted in different planes. It was highly abnormal with some apparent calcifications, other areas that were friable to grasp, and not amenable to retraction or any repair. It was then meticulously dissected off the remaining viable layers and resected with the mechanical shaver and radiofrequency ablator. The remaining supraspinatus elevators best possible off the superior glenoid articularly and bursal immediately from the distal clavicle and acromion. Although it was thin as it was only bursal layers of the supraspinatus, it could be reduced over the thoroughly prepared greater tuberosity bony footprint. The central portion was the thinnest and had the appearance of muscle atrophy medially. The posterior to infraspinatus junction had more briceno tendon and muscle appearance. The decision was made to proceed with repair of this large remnant supraspinatus as opposed to resection of all this supraspinatus tissue only to place a similar thickness dermal allograft, which would not function as a tendon. Tear was carefully prepared, greater tuberosity with a rasp and shaver, and the margins discerned anteriorly and posteriorly. A single lateral row was planned given the tissue coverage moderately from medial to lateral and the nature of the tendon. The repair was visualized articular as well and demonstrated with the suture passer to ensure including all layers of this supraspinatus tissue as well as the junction and healthier infraspinatus tissue involving the partial tearing more wrapping around posteriorly. The self retrieving suture passer was used to place an inverted horizontal mattress FiberTape incorporating the posterior supraspinatus and anterior infraspinatus with a FiberLink suture tape in cinch mode placed centrally in a ripstop configuration. These repair sutures were secured to a lateral posterior 5.5 mm suture anchor with excellent tissue hold and bone fixation. One of the sliding sutures then placed through some compressed dogear tissue and used to reduce this tissue and add additional fixation posterior laterally. The remaining supraspinatus tissue was again examined and appropriate for repair. The self retrieving suture passer was again used to place an inverted horizontal mattress suture spaced widely with large tissue grabs in this thin and degenerative tissue. The suture tape had good tissue hold and the scorpion was then used to place a suture tape FiberLink in cinch mode centrally again in ripstop configuration. These repair sutures were localized to an anterior lateral row 4.75 mm SwiveLock anchor and secured nicely with reduction of tissue over the previous large central to anterior greater tuberosity supraspinatus defect. Lastly, the knotless remaining repair suture from this last anchor was shuttled through a tight but small defect between the anterior and posterior repairs and used to add additional suture security centrally in the repair. The repair was tested and inspected through shoulder range of motion and was stable and secure. The rotator cuff tendon and the muscle more medially had more appropriate tension and overall appearance as well. The shoulder was drained of arthroscopic fluid. All portal sites were copiously irrigated. These incisions were closed using 3-0 Monocryl in a buried fashion and then covered with Mastisol, Steri-Strips, Xeroform, dry gauze, and ABDs. The dressings were covered and secured with Medipore tape. The operative extremity was placed into a sling for immobilization. The patient awoke from anesthesia without complication and was transferred to the recovery room in a stable condition.
--- NOTE | 2023-05-23 08:07 | W.ANESPRE ---
General Info Height: 5 ft 7.5 in Weight: 89.896 kg Body Mass Index (BMI): 30.5 Surgical Procedure: Operation Date: 05/23/23 11:55 Proposed Procedure Side Surgeon p Shoulder Rotator Cuff Arthroscopic w/Extensive Debridement, Possible Allograft Superior Capsular Reconstruction Right Manuel Guerrero MD Meds Allergies and Home Medications Allergies Allergy/AdvReac Type Severity Reaction Status Date / Time No Known Allergies Allergy Verified 05/23/23 09:38 Home Medication Medication Instructions Recorded allopurinol 300 mg tablet 300 mg PO DAILY 07/17/21 amlodipine 5 mg tablet 5 mg PO DAILY 07/17/21 omeprazole 40 mg capsule,delayed 40 mg PO DAILY 07/17/21 release simvastatin 20 mg tablet 20 mg PO HS 07/17/21 Current Visit Medications: Current Medications Generic Name Dose Route Start Last Admin Trade Name Freq PRN Reason Stop Dose Admin Ringer's Solution 1,000 mls @ 30 mls/hr 05/23/23 06:00 IV 05/23/23 23:59 INFUSION SHAR Cefazolin Sodium/Dextrose 2 gm in 50 mls @ 100 mls/hr 05/23/23 06:00 Ancef Duplex IVPB 05/23/23 23:59 PREOP SHAR IV Miscellaneous Supplies 1 each 05/23/23 06:00 Iv Access IV 05/23/23 23:59 DIRECTED SHAR Sodium Chloride 0 ml 05/23/23 06:00 Normal Saline Flush 10 Ml Syr IV 05/23/23 23:59 PRN PRN Sodium Chloride 0 ml 05/23/23 06:00 Normal Saline 10 Ml Vial IJ 05/23/23 23:59 DIRECTED PRN Sterile Water 0 ml 05/23/23 06:00 Water,Injection,Sterile 10 Ml Vial IJ 05/23/23 23:59 DIRECTED PRN PFSH Active Problems Active Problems: Problem Status Onset Code Heart murmur R01.1 Preop cardiovascular exam Z01.810 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 stated that he felt last time he had a block he got queasy and felt like he was going to pass out Surgical History Surgical History Hx of arthroscopic knee surgery History of surgery on wrist Tobacco Smoking/Tobacco Use Status: Current-Occasional Tobacco Type: cigars Alcohol Alcohol Intake: current Alcohol intake frequency: 0-2 drinks per day Alcohol type: wine and hard liquor Substance Use Substance use: Never Substance use type: does not use Vital Signs and Lab Results Lab Results Blood Type / Crossmatch: No Data to Display Complete Blood Count: No Data to Display Complete Metabolic Panel: No Data to Display Liver Function Panel: No Data to Display Coagulation Panel: No Data to Display Cardiac Panel: No Data to Display Arterial Blood Gas: No Data to Display Venous Blood Gas: No Data to Display Pancreas Panel: No Data to Display Thyroid Panel: No Data to Display Infectious Disease: No Data to Display Blood Cultures: No Data to Display Toxicology Panel: No Data to Display Imaging and Studies Imaging and Studies Study information below may be from another EMR and interpreted by another provider. Please see original notes in EMR for more complete details. EKG Summary: 05/25: sinus, LAFB, LVH. Echocardiogram Summary: 05/25: LVEF 60%, normal thickness. mild AR/MR, trace TR. Anesthesia Assessment and Plan Anesthesia History Personal History: No History of Anesthesia Complications Family History: No Family History of Anesthesia Complications Exercise Tolerance Exercise Tolerance: Metabolic Equivalents>4 Implantable Cardiac Device Does patient have a Pacemaker or an ICD?: No Airway Exam Known Difficult Airway: No Mallampati Class: 2 Mouth Opening: Normal (> 3cm) Thyromental Distance: Greater than 3 cm Neck Range of Motion: Full ROM Neck Circumference: Normal Teeth Condition: Normal Dentition ASA Classification ASA Score: ASA 2 Anesthesia Plan Resuscitation Status: Full Code Anesthesia Technique: General Anesthesia Airway Planned: Endotracheal Tube Pain Management: Surgeon and patient request nerve block Monitors Used: Standard Monitors Preoperative Comments:: 73 yo male for shoulder. Sig PMHx: HTN (amlodipine), GERD (omeprazole), MICAH, CKD, occ cigars. Recent evaluation due to new onset murmur at last visit. Patient doing well at this point, ECHO and cards note reviewed.
[2023-05-23] MEDS: Lactated Ringers 1,000 ML 30 ML IV (10:22)
--- NOTE | 2023-05-23 11:04 | PDOC.DSDIS_ITS ---
Date of service: 05/23/23 Time of Service: 16:00 Discharge Plan Disposition Patient Disposition: Home Condition: Stable Discharge Details Attending Provider: Manuel Guerrero Primary Care Provider: Coleen Amato Home Meds and New Rx's Prescriptions: New aspirin 81 mg tablet,delayed release (DR/EC) 81 mg PO DAILY 7 Days Qty: 7 0RF naproxen 250 mg tablet 250 - 500 mg PO BID PRNQty: 40 0RF Rx Instructions: take with a meal oxycodone 5 mg tablet 5 - 10 mg PO Q4H MDD 30 mg PRN (Reason: moderate to severe pain) Qty: 18 0RF Continued omeprazole 40 mg capsule,delayed release(DR/EC) 40 mg PO DAILY allopurinol 300 mg tablet 300 mg PO DAILY simvastatin 20 mg tablet 20 mg PO HS amlodipine 5 mg tablet 5 mg PO DAILY Discharge Instructions Additional Instructions: Surgery: Right shoulder arthroscopy with massive rotator cuff repair ( subscapularis, supraspinatus, and infraspinatus) and revision extensive debridement. Activity: For 6 weeks, you should keep your arm at your side in a neutral position at all times except for physical therapy. Do not try to lift or raise your arm using your own muscles. You should use the sling whenever you are out of the house. You may have to adjust the abduction pillow or remove it for comf ort. At home it is best to remove the sling and rest the arm on a pillow at your side or support the operative side with your other hand. You may allow the arm to dangle at your side. A physical therapy prescription will be sent electronically to begin in about 3 weeks. CONSERVATIVE protocol. Prescriptions: Aspirin 81 mg take 1 daily to prevent a blood clot for 7 days Naproxen 250 mg take 1-2 every 12 hours with a meal as needed for moderate pain Oxycodone 5 mg take 1-2 every 4-6 hours as needed for severe pain You may use [id number] Tylenol (acetaminophen) as needed for mild pain. These pain medications may be taken all at once or in different combinations as needed. Also, recommend Colace (docusate) as a stool softener as surgery and pain medicine cause constipation. You may try [id number] diphenhydramine (Benadryl) 25-50 mg nightly as a sleep aid Dressings: Remove shoulder bandage after 3 days. Leave the sticky Steri-Strips in place until they fall off or remove them after you shower. Cover the incisions with Band-Aids or leave them open to air. You may shower after 5 days. Follow-up: 10-[address] Guerrero You may take off the leg compression stockings this evening at home. You may also leave them on a few days longer if you have a history of leg swelling or edema. Let us know right away if you develop any redness, drainage, fevers, chest pain, or trouble breathing. Do not drink alcohol or drive for at least 24 hours after anesthesia. Please call the office during business hours with any questions or concerns. Discharge Orders Discharge Orders: Discharge Order (Routine); Ordered 05/23/23 Ordered By: Ramin Donnelly DS: Diagnosis Discharge Diagnosis (1) Right rotator cuff tear: Status: Acute
--- NOTE | 2023-05-23 11:41 | ANES.PREOP_ITS ---
General Info Date of Service Date Performed: 05/23/23 Height: 5 ft 7.5 in Weight: 89.8 kg Body Mass Index (BMI): 30.5 Surgical Procedure: Operation Date: 05/23/23 11:55 Proposed Procedure Side Surgeon p Shoulder Rotator Cuff Arthroscopic w/Extensive Debridement, Possible Allograft Superior Capsular Reconstruction Right Manuel Guerrero MD Meds Allergies and Home Medications Allergies Allergy/AdvReac Type Severity Reaction Status Date / Time No Known Allergies Allergy Verified 05/23/23 09:38 Home Medication Medication Instructions Recorded allopurinol 300 mg tablet 300 mg PO DAILY 07/17/21 amlodipine 5 mg tablet 5 mg PO DAILY 07/17/21 omeprazole 40 mg capsule,delayed 40 mg PO DAILY 07/17/21 release simvastatin 20 mg tablet 20 mg PO HS 07/17/21 Current Visit Medications: Current Medications Generic Name Dose Route Start Last Admin Trade Name Freq PRN Reason Stop Dose Admin Ringer's Solution 1,000 mls @ 30 mls/hr 05/23/23 06:00 05/23/23 10:22 IV 05/23/23 23:59 30 mls/hr INFUSION [facility] Administration Cefazolin Sodium/Dextrose 2 gm in 50 mls @ 100 mls/hr 05/23/23 06:00 Ancef Duplex IVPB 05/23/23 23:59 PREOP [facility] IV Miscellaneous Supplies 1 each 05/23/23 06:00 Iv Access IV 05/23/23 23:59 DIRECTED SHAR Oxycodone HCl 0 mg 05/23/23 11:02 Oxycodone 5 Mg Tab PO 06/22/23 11:01 Q3H PRN PRN Pain Sodium Chloride 0 ml 05/23/23 06:00 Normal Saline Flush 10 Ml Syr IV 05/23/23 23:59 PRN PRN Sodium Chloride 0 ml 05/23/23 06:00 Normal Saline 10 Ml Vial IJ 05/23/23 23:59 DIRECTED PRN Sterile Water 0 ml 05/23/23 06:00 Water,Injection,Sterile 10 Ml Vial IJ 05/23/23 23:59 DIRECTED PRN PFSH Active Problems Active Problems: Problem Status Onset Code Heart murmur R01.1 Preop cardiovascular exam Z01.810 Arthritis of right acromioclavicular joint M19.011 Rupture of right proximal biceps tendon S46.211A Right rotator cuff tear M75.101 Primary osteoarthritis of left knee M17.12 Primary osteoarthritis of right knee M17.11 Medical History Medical History Vitamin D deficiency Spondylitis Diverticulitis MICAH (obstructive sleep apnea) CKD (chronic kidney disease) 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 Prostate cancer Right rotator cuff tendonitis Steroid injection: 06/14/2022; 10/26/2021 Tendonitis of long head of biceps brachii of right shoulder Hyperlipidemia HTN (hypertension) Gout Surgical History Surgical History Hx of arthroscopic knee surgery History of surgery on wrist Tobacco Smoking/Tobacco Use Status: Never Alcohol Alcohol Intake: current Alcohol intake frequency: 0-2 drinks per day Alcohol type: wine and hard liquor Substance Use Substance use: Never Substance use type: does not use Vital Signs and Lab Results Vital Signs Most Recent Vital Signs in EMR: Most Recent Vital Signs Temp Pulse Resp BP Pulse Ox 36.6 C 71 16 156/67 H 97 05/23/23 09:41 05/23/23 09:41 05/23/23 09:41 05/23/23 09:41 05/23/23 09:41 Lab Results Blood Type / Crossmatch: 2 No Data to Display Complete Blood Count: No Data to Display Complete Metabolic Panel: No Data to Display Liver Function Panel: No Data to Display Coagulation Panel: No Data to Display Cardiac Panel: No Data to Display Arterial Blood Gas: No Data to Display Venous Blood Gas: No Data to Display Pancreas Panel: No Data to Display Thyroid Panel: No Data to Display Infectious Disease: No Data to Display Blood Cultures: No Data to Display Toxicology Panel: No Data to Display Imaging and Studies Imaging and Studies Study information below may be from another EMR and interpreted by another provider. Please see original notes in EMR for more complete details. EKG Summary: 05/25: sinus, LAFB, LVH. Echocardiogram Summary: 05/25: LVEF 60%, normal thickness. mild AR/MR, trace TR. Anesthesia Assessment and Plan Anesthesia History Personal History: No History of Anesthesia Complications Family History: No Family History of Anesthesia Complications Exercise Tolerance Exercise Tolerance: Metabolic Equivalents>4 Pertinent Negatives Pertinent Negatives: No Symptoms of GERD (medication controlled reflux per pt ), No Major Cardiovascular Symptoms or Complaints, No Major Pulmonary Symptoms or Complaints and No History of CVA/TIA Cardiac & Pulmonary Exam Cardiac Exam: Heart Murmur Present (known murmur and cardiology consult reviewed with results in chart ) Pulmonary Exam: Clear Bilateral Breath Sounds Implantable Cardiac Device Does patient have a Pacemaker or an ICD?: No Airway Exam Known Difficult Airway: No Mallampati Class: 2 Mouth Opening: Normal (> 3cm) Thyromental Distance: Greater than 3 cm Neck Range of Motion: Full ROM Neck Circumference: Normal Teeth Condition: Normal Dentition ASA Classification ASA Score: ASA 2 Emergency Case?: No NPO Status NPO Status: NPO Clears >2 hours, Solids >8 hours Anesthesia Plan Resuscitation Status: Full Code Anesthesia Technique: General Anesthesia Airway Planned: Endotracheal Tube Pain Management: Surgeon and patient request nerve block Monitors Used: Standard Monitors and SedLine
[2023-05-23] MEDS: ceFAZolin 2 GM/50 ML BAG IVPB (12:50)
[2023-05-23] MEDS: Normal Saline 100 ML 360 ML (12:56)
[2023-05-23] MEDS: Tranexamic Acid 1,000 MG/10 ML VIAL 1000 MG (12:56)
[2023-05-23] MEDS: Bupivacaine 0.25% Pres-Free 30 ML VIAL (13:22)
[2023-05-23] MEDS: EPINEPHrine 10 MG/10 ML ML (13:22)
--- NOTE | 2023-05-23 13:25 | ANES.NERVE_ITS ---
Nerve Block Single Injection Procedure Date and Time Date Performed: 05/23/23 Procedure Start: 11:42 Location Where Procedure Performed Procedure Location: Day Surgery Unit Reason Performed: Postoperative Analgesia Requesting Provider: Manuel Guerrero Timeout Performed Timeout Performed: Yes Monitoring Used ECG, Blood Pressure and SpO2 Sterility Sterility: Hand Hygiene, Surgical Cap, Surgical Mask, Sterile Gloves and Chlorhexidine Sedation Given During Procedure Sedation Given (Indicate Dose Given): No Sedation given Patient Mental Status Patient Mental Status: Awake Nerve Block 1st Nerve Block: Laterality: Right Block Type: Interscalene Ultrasound Image Saved?: Yes Needle / Catheter Used: 100mm SonoPlex II Local Anesthetic Bolus (Indicate Dose Given): Lidocaine used for local inf iltration of skin, Injected in 3-5ml increments after negative blood aspiration, Bupivacaine 0.5% Dose:: 10mL and Exparel Dose:: 10mL Additives (Indicate Dose Given): None Ultrasound: Sterile probe cover and gel used Nerve Stimulator: Supplement to Ultrasound use Paresthesia: None Procedure Tolerated: No Complications and Patient tolerated well Procedure Outcome: Successful Performed By: Daniela Ruffin Supervised By: Dc Stratton
--- NOTE | 2023-05-23 15:45 | W.ANESPOSTOP ---
Postoperative Evaluation Date, Time and Location Date Performed: 05/23/23 Time Performed: 15:46 Patient Location: PACU Vital Signs Most Recent Imported Vital Signs: Most Recent Vital Signs Temp Pulse Resp BP Pulse Ox 36.7 C 72 15 100/45 L 94 05/23/23 15:39 05/23/23 15:39 05/23/23 15:39 05/23/23 15:39 05/23/23 15:39 Pain Score Most Recent Pain Score: Most Recent Pain Score Pain Level 0 05/23/23 11:25 Assessment Mental Status: Awake (Alert & Oriented to Patient Baseline) Airway and Respiratory Function: Patent airway with normal (patient baseline) respiratory exam Cardiovascular Function: Hemodynamically Stable Hydration Status: Adequately Hydrated Nausea & Vomiting: No Nausea or Vomiting Pain: Pt. Denies Any Pain Peripheral Nerve Block: Regional nerve block not resolved at time of post operative discharge
== END 2023-05-23 17:25 | disposition home or self-care (01) ==
PROVIDERS: PCP Nurse Practitioner Pediatrics; Visit Provider Student in an Organized Health Care Education/Training Program
PROC: (CPT 29827; principal; 2023-05-23 11:45)
DX: M75.101 Unspecified rotator cuff tear or rupture of right shoulder, not specified as traumatic (principal)
CPT/HCPCS: 29827; 29823; 76942; C1781; C9290; J0131; J0665; J0690; J1100; J1885; J2371; J2405; J2598; J2704

== ENCOUNTER → 2023-06-05 09:21 | Outpatient (BNVA) | payer MEDICARE, SELFPAY | PROVIDERS: PCP Nurse Practitioner Pediatrics; Referring Provider Nurse Practitioner Pediatrics | DX: Z47.89 Encounter for other orthopedic aftercare (principal); M75.101 Unspecified rotator cuff tear or rupture of right shoulder, not specified as traumatic ==

== ENCOUNTER → 2023-07-10 09:13 | Outpatient (BNVA) | payer MEDICARE, SELFPAY | PROVIDERS: PCP Nurse Practitioner Pediatrics; Referring Provider Nurse Practitioner Pediatrics; Visit Provider Student in an Organized Health Care Education/Training Program | DX: Z47.89 Encounter for other orthopedic aftercare (principal); M75.101 Unspecified rotator cuff tear or rupture of right shoulder, not specified as traumatic ==

== ENCOUNTER → 2023-07-12 10:00 | Outpatient (BNVA) | payer MEDICARE, SELFPAY | PROVIDERS: PCP Nurse Practitioner Pediatrics; Referring Provider Nurse Practitioner Pediatrics; Visit Provider Physician Assistant | DX: M17.12 Unilateral primary osteoarthritis, left knee (principal); M17.11 Unilateral primary osteoarthritis, right knee | CPT/HCPCS: 20610; J1010; J1040 ==

== ENCOUNTER → 2023-09-11 09:08 | Outpatient (BNVA) | payer MEDICARE, SELFPAY | PROVIDERS: PCP Nurse Practitioner Pediatrics; Referring Provider Nurse Practitioner Pediatrics; Visit Provider Student in an Organized Health Care Education/Training Program | DX: M75.101 Unspecified rotator cuff tear or rupture of right shoulder, not specified as traumatic (principal) | CPT/HCPCS: 99213 ==

== ENCOUNTER 2024-01-27 15:36 | Outpatient (CLI) | payer MEDICARE, SELFPAY ==
--- NOTE | 2024-01-27 14:38 | DI.RAD_ITS ---
Exam(s) XR KNEE LT 1V EXAM: XR KNEE LT 1V CLINICAL HISTORY: OA L KNEE. TECHNIQUE: 2D digital imaging was performed. COMPARISON: CR XR KNEE RT 3V AP,LAT,ZORAIDA from 07/17/2021 FINDINGS: Single lateral view of the left knee. There is no evidence of fracture but there does appear to be a joint effusion. No obvious degenerative changes evident on the lateral view. Please note that there is mild degenera tive change in the medial compartment evident on the frontal view. Bone density normal. No osseous lesions. Some calcification is noted in the popliteal artery. IMPRESSION: There is joint effusion noted in the suprapatellar bursa. No significant osseous findings on this la teral view. DATA REPOSITORY: RADIATION DOSE DELIVERED:
--- NOTE | 2024-01-27 14:38 | DI.RAD_ITS ---
Exam(s) XR STANDING ALIGNMENT EXAM: XR STANDING ALIGNMENT CLINICAL HISTORY: OA L KNEE. TECHNIQUE: 2D digital imaging was performed. COMPARISON: CR XR KNEE RT 3V AP,LAT,ZORAIDA from 07/17/2021 FINDINGS: 3 views There is mild-moderate narrowing of the medial compartment of the left knee and tiny marginal osteoph yte off the medial compartment, findings appearing similar to images of 07/17/2021. Lateral compartm ent of the left knee exhibits normal height. In the opposite-right knee there is mild narrowing of t he medial compartment and normal height of the lateral compartment. Both hips appear unremarkable although the left hip is slightly higher than the right with some pelvi c tilt evident. Ankles appear unremarkable. IMPRESSION: Some narrowing of the medial compartment left knee appears unchanged from images of 07/17/2021. Milder narrowing of the medial compartment of the opposite-right knee. Pelvic tilt evident DATA REPOSITORY: RADIATION DOSE DELIVERED:
== END 2024-01-27 15:37 | disposition home or self-care (01) ==
LOC: DIORS 15:36
PROVIDERS: PCP Nurse Practitioner Pediatrics; Referring Provider Nurse Practitioner Pediatrics; Visit Provider Student in an Organized Health Care Education/Training Program
DX: M17.12 Unilateral primary osteoarthritis, left knee (principal)
CPT/HCPCS: 99213; 73560; 77073

== ENCOUNTER 2024-02-03 03:01 | Outpatient (CLI) | payer MEDICARE, SELFPAY ==
[2024-02-03 08:50] LABS: HCT 42.8 % (40.0-50.0); HGB 14.3 g/dL (13.5-17.5); MCHC 33.4 % (32.0-36.0); MCV 90 fL (80-95); MPV 10.6 fL (8.0-11.0); Platelet Count 304 10^3/uL (130-400); RBC 4.76 10^6/uL (4.36-5.78); RDW 14.2 % (11.8-14.1); RDW-SD 46.5 fL; WBC 10.99 10^3/uL (4.4-10.8)
[2024-02-03 09:54] LABS: Anion Gap 8.4 mmol/L (3-11); BUN 20 mg/dL (7-18); CO2 28.6 mmol/L (21.0-32.0); CREATININE 1.2 mg/dL (0.70-1.30); Calcium 9.9 mg/dL (8.5-10.1); Chloride 103 mmol/L (98-107); Estimated GFR 63.07 (mL/min/1.73m2); Glucose 132 mg/dL (74-106); Potassium 4.4 mmol/L (3.5-5.1); Sodium 140 mmol/L (136-145)
== END 2024-02-03 03:02 | disposition home or self-care (01) ==
LOC: LBO 03:02
PROVIDERS: PCP Nurse Practitioner Pediatrics; Visit Provider Student in an Organized Health Care Education/Training Program
DX: M17.12 Unilateral primary osteoarthritis, left knee (principal); Z01.818 Encounter for other preprocedural examination
CPT/HCPCS: 36415; 80048; 85027

== ENCOUNTER 2024-02-11 08:22 | Day surgery (SDC) | payer MEDICARE, SELFPAY ==
[2024-02-11] VITALS (20 sets, daily range): BP systolic 76–140; BP diastolic 36–70; PULSE 64–85; RESP 8–21; TEMP 36–36.9; O2SAT 92–97; BMI 28.0
--- NOTE | 2024-02-11 07:25 | PDOC.DSDIS_ITS ---
Date of service: 02/11/24 Time of Service: 07:28 Discharge Plan Disposition Patient Disposition: Home Condition: Good Discharge Details Reason For Visit: Left knee DJD Attending Provider: Manish Roberts Primary Care Provider: Coleen Amato Home Meds and New Rx's Prescriptions: New acetaminophen 500 mg tablet 1,000 mg PO Q8H PRN Qty: 90 0RF Rx Instructions: Take two tablets up to every 8 hours as needed for pain aspirin 81 mg tablet,delayed release (DR/EC) 81 mg PO BID 30 Days Qty: 60 0RF celecoxib [Celebrex] 200 mg capsule 200 mg PO BID PRNQty: 60 0RF Rx Instructions: Take one tablet twice daily for pain and inflammation docusate sodium [Colace] 100 mg capsule 100 mg PO BID Qty: 30 0RF dexamethasone 4 mg tablet 4 mg PO DAILY Qty: 2 0RF Rx Instructions: Take one tablet once daily for two days gabapentin 300 mg capsule 300 mg PO QHS Qty: 14 0RF Rx Instructions: Take one tablet at bedtime oxycodone 5 mg tablet 5 mg PO Q4H PRNQty: 18 0RF Rx Instructions: Take one tablet up to every 4 hours as needed for severe postoperative pain Continued omeprazole 40 mg capsule,delayed release(DR/EC) 40 mg PO DAILY allopurinol 300 mg tablet 300 mg PO DAILY simvastatin 20 mg tablet 20 mg PO HS amlodipine 5 mg tablet 5 mg PO DAILY Discharge Instructions Additional Instructions: Total Knee Discharge Instructions Activity: The most important activity is to walk and to work on gentle motion (both flexion and extension). You should try to take short walks a few times a day. It is important that when resting you work on keeping the knee straight. Avoid putting a pillow behind the knee as this will encourage flexion. Work on range of motion exercises as provided by Physical Therapy. - Start outpatient physical therapy within 2 weeks. - You should wear the ARLEN hose on both legs for 2 weeks. You may remove these at night. You may also use any compression sock in place of the ARLEN hose. - Utilize [employer] to review exercises, see videos on exercises and obtain basic information pertaining to your surgery and your recovery. Dressing: Remove the Sandeep wrap by 2 days after your surgery and put on the ARLEN stocking given to you from the hospital. Keep the surgical dressing (underneath the SANDEEP wrap) in place for at least one week. After the first week it may be removed and replaced with light gauze and tape or nothing. The wound and dressing may get wet after 3 days but avoid soaking the dressing or otherwise it will need to be changed. Many people prefer covering the dressing with cling wrap (saran wrap) to minimize it from getting soaked. If it gets wet, just pat dry. If it starts to peel off then it will need to be changed. Medications: - You should take Tylenol and anti-inflammatory Celebrex as your primary pain control medications. If the Celebrex is too expensive or not covered, please call the office for another alternative (Advil/Ibuprofen or Naproxen/Aleve) - You have been prescribed a stronger pain medication Oxycodone for breakthrough pain, take as needed as prescribed. - You take a stomach acid reduction agent Omeprazole at baseline continue with this medication to help reduce stomach acid and reflux. - You have been prescribed Gabapentin to take at night for restlessness and nerve pain. - You will be taking Aspirin 81mg twice a day for DVT prevention unless instructed otherwise. - You have also been prescribed Decadron to take to control post-operative nausea and pain. You will start this tomorrow. - If you have constipation you should take Colace (which has been prescribed) or Miralax (which is available [id number]). It takes most people 3-4 days to have a bowel movement. Follow-up: 2 weeks If you have any acute concerns or questions, please do not hesitate to contact the office at [phone]. You may contact Dr. Roberts with any questions after hours through the hospital at [phone] or on his cell phone at [phone]. Referrals: Manish Roberts MD [ [facility] STAFF PHYSICIAN] - Equipment/Supplies: Walker Activity:: Elevate Remove Dressings/Wound Care:: Do Not Remove Shower/Bathe:: Cover Diet:: As Tolerated Discharge Orders Discharge Orders: Discharge Order (Routine); Ordered 02/11/24 Ordered By: Naty Mishra
--- NOTE | 2024-02-11 08:28 | ANES.PREOP_ITS ---
General Info Date of Service Date Performed: 02/11/24 Height: 5 ft 7.5 in Weight: 82.554 kg Body Mass Index (BMI): 28.0 Surgical Procedure: Operation Date: 02/11/24 11:10 Proposed Procedure Side Surgeon p Knee Total Arthroplasty Left Manish Roberts MD Meds Allergies and Home Medications Allergies Allergy/AdvReac Type Severity Reaction Status Date / Time No Known Allergies Allergy Verified 02/11/24 08:56 Home Medication ?Medication ?Instructions ?Recorded allopurinol 300 mg tablet 300 mg PO DAILY 07/17/21 amlodipine 5 mg tablet 5 mg PO DAILY 07/17/21 omeprazole 40 mg capsule,delayed 40 mg PO DAILY 07/17/21 release simvastatin 20 mg tablet 20 mg PO HS 07/17/21 acetaminophen 500 mg tablet 1,000 mg (2 x 500 mg) PO Q8H PRN 02/11/24 pain #90 tabs aspirin 81 mg tablet,delayed 81 mg PO BID 30 days #60 tabs 02/11/24 release celecoxib 200 mg capsule (Celebrex) 200 mg PO BID PRN #60 caps 02/11/24 dexamethasone 4 mg tablet 4 mg PO DAILY #2 tabs 02/11/24 docusate sodium 100 mg capsule 100 mg PO BID #30 caps 02/11/24 (Colace) gabapentin 300 mg capsule 300 mg PO QHS #14 caps 02/11/24 oxycodone 5 mg tablet 5 mg PO Q4H PRN #18 tabs 02/11/24 Current Visit Medications: Current Medications Generic Name Dose Route Start Last Admin Trade Name Freq PRN Reason Stop Dose Admin Acetaminophen 1,000 mg 02/11/24 06:00 Acetaminophen 500 Mg Tab PO 02/11/24 18:00 PREOP SHAR Celecoxib 400 mg 02/11/24 06:00 Celecoxib 200 Mg Cap PO 02/11/24 18:00 PREOP SHAR Gabapentin 300 mg 02/11/24 06:00 Gabapentin 300 Mg Cap PO 02/11/24 18:00 PREOP SHAR Hydromorphone HCl 0.5 mg 02/11/24 07:23 Hydromorphone 1 Mg/Ml Syr IVP 03/12/24 07:22 Q2H PRN PRN Cefazolin Sodium/Dextrose 2 gm in 50 mls @ 100 mls/hr 02/11/24 06:00 Ancef Duplex IVPB 02/11/24 18:00 PREOP SHAR Tranexamic Acid/Sodium Chloride 1,000 mg in 100 mls @ 600 mls/hr 02/11/24 06:00 IVPB 02/11/24 18:00 PREOP SHAR Ringer's Solution 500 mls @ 30 mls/hr 02/11/24 08:30 IV 03/12/24 08:29 INFUSION SHAR Cefazolin Sodium/Dextrose 1 gm in 50 mls @ 100 mls/hr 02/11/24 08:00 Ancef Duplex IVPB 02/12/24 00:29 Q8H SHAR IV Miscellaneous Supplies 1 each 02/11/24 06:00 Iv Access IV 03/11/24 23:59 DIRECTED SHAR Oxycodone HCl 0 mg 02/11/24 07:23 Oxycodone 5 Mg Tab PO 03/12/24 07:22 Q3H PRN PRN Pain Sodium Chloride 0 ml 02/11/24 06:00 Normal Saline Flush 10 Ml Syr IV 03/11/24 23:59 PRN PRN Sodium Chloride 0 ml 02/11/24 06:00 Normal Saline 10 Ml Vial IJ 03/11/24 23:59 DIRECTED PRN Sterile Water 0 ml 02/11/24 06:00 Water,Injection,Sterile 10 Ml Vial IJ 03/11/24 23:59 DIRECTED PRN PFSH Active Problems Active Problems: Problem Status Onset Code History of total left knee replacement Acute 02/11/24 Z96.652 Heart murmur Acute R01.1 Preop cardiovascular exam Acute Z01.810 Arthritis of right acromioclavicular joint Acute M19.011 Rupture of right proximal biceps tendon Acute S46.211A Right rotator cuff tear Acute M75.101 Primary osteoarthritis of right knee Acute M17.11 Medical History Medical History Vitamin D deficiency Spondylitis Diverticulitis MICAH (obstructive sleep apnea) CKD (chronic kidney disease) 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 Prostate cancer Right rotator cuff tendonitis Steroid injection: 06/14/2022; 10/26/2021 Tendonitis of long head of biceps brachii of right shoulder Hyperlipidemia HTN (hypertension) Gout Surgical History Surgical History Hx of arthroscopic knee surgery History of surgery on wrist Tobacco Smoking/Tobacco Use Status: Never Alcohol Alcohol Intake: current Alcohol intake frequency: 0-2 drinks per day Alcohol type: wine and hard liquor Substance Use Substance use: Never Substance use type: does not use Vital Signs and Lab Results Vital Signs Most Recent Vital Signs in EMR: Temp Pulse Resp BP Pulse Ox 36.9 C 72 21 121/68 97 02/11/24 09:50 02/11/24 09:50 02/11/24 09:50 02/11/24 09:50 02/11/24 09:50 Lab Results Blood Type / Crossmatch: 2 No Data to Display Complete Blood Count: 2 White Blood Count 10.99 10^3/uL (4.4-10.8) H 02/03/24 08:35 Red Blood Count 4.76 10^6/uL (4.36-5.78) 02/03/24 08:35 Hemoglobin 14.3 g/dL (13.5-17.5) 02/03/24 08:35 Hematocrit 42.8 % (40.0-50.0) 02/03/24 08:35 Platelet Count 304 10^3/uL (130-400) 02/03/24 08:35 Complete Metabolic Panel: 2 Sodium 140 mmol/L (136-145) 02/03/24 08:35 Potassium 4.4 mmol/L (3.5-5.1) 02/03/24 08:35 Chloride 103 mmol/L (98-107) 02/03/24 08:35 Carbon Dioxide 28.6 mmol/L (21.0-32.0) 02/03/24 08:35 BUN 20 mg/dL (7-18) H 02/03/24 08:35 Creatinine 1.2 mg/dL (0.70-1.30) 02/03/24 08:35 Est GFR (CKD-EPI 2020) 63.07 (mL/min/1.73m2) 02/03/24 08:35 Calcium 9.9 mg/dL (8.5-10.1) 02/03/24 08:35 Glucose 132 mg/dL (74-106) H 02/03/24 08:35 Liver Function Panel: 2 No Data to Display Coagulation Panel: 2 No Data to Display Cardiac Panel: 2 No Data to Display Arterial Blood Gas: 2 No Data to Display Venous Blood Gas: 2 No Data to Display Pancreas Panel: 2 No Data to Display Thyroid Panel: 2 No Data to Display Infectious Disease: 2 No Data to Display Blood Cultures: 2 No Data to Display Toxicology Panel: 2 No Data to Display Imaging and Studies Imaging and Studies Study information below may be from another EMR and interpreted by another provider. Please see original notes in EMR for more complete details. EKG Summary: EKG PATIENT NAME: Cuate Edward Jr UNIT #: [id number] ORDERING PROVIDER: Ernestine Allen M.D. PRIMARY CARE PROVIDER: COLEEN AMATO APRN DATE/TIME OF SERVICE: 05/09/23 1136 : 1950 PERFORMING LOCATION: .CARD APPROVED REPORT Exam: Resting ECG Reason for Exam: baseline Patient Location: O HR:74 bpm ECG Measurements Heart Rate 74 AXIS CA 180 P 23 QRSd 93 QRS -40 QT 391 T27 QTc 434 Conclusion Sinus rhythm...normal P axis, V-rate 50- 99 Left anterior fascicular block...axis(240,-40), init forces inf Abnormal R-wave progression, late transition...QRS area<0 in V5/V6 Left ventricular hypertrophy...multiple voltage criteria I have reviewed and interpreted ECG and agree with software generated interpretation. Echocardiogram Summary: Patient Name: Cuate Edward Jr Unit #: [id number] Loc: Ordering Provider: Manuel Guerrero M.D. Status: REG CLI Primary Care Provider: Coleen Amato Date of Exam: 05/17/23 Sex: M Admission Date: 05/17/23 : 1950 Age: 73 APPROVED REPORT EXAM: Comprehensive 2D, Doppler, and color-flow Echocardiogram Patient Location: [facility] Supervisor: Cathy Fung RDCS (AE) Indications: Surgical clearance, Heart Murmur Other Information Study Quality: Good Conclusion Normal left ventricular wall thickness and chamber size. Ejection fraction is 60%. Wall motion is normal. Diastolic function is normal for age Normal right ventricular size and function Both atria are normal in size There are no structural valvular abnormalities There is trace to mild aortic regurgitation, mild mitral and trace tricuspid regurgitation Estimated right ventricular systolic pressure is 24 mm Wall motion Left Ventricle The left ventricle is normal size. The left ventricular systolic function is normal. The left ventricular ejection fraction is within the normal range. There is normal left ventricular wall thickness. There is normal LV segmental wall motion. There is no ventricular septal defect visualized. LVEF is 60%. Right Ventricle The right ventricle is normal size. The right ventricular systolic function is normal. Atria The left atrium size is normal. The right atrium size is normal. The interatrial septum is intact with no evidence for an atrial septal defect. Aortic Valve Aortic valve is trileaflet. There is no aortic valvular stenosis. Trace to mild aortic regurgitation. Mitral Valve The mitral valve is normal in structure. No evidence of mitral valve stenosis. Trace to mild mitral regurgitation. Tricuspid Valve The tricuspid valve is normal in structure. There is no tricuspid valve stenosis. Trace tricuspid regurgitation. The RVSP is 24.2 mmHg. Pulmonic Valve The pulmonary valve is normal in structure. There is no pulmonic valvular stenosis. Trace pulmonic regurgitation. Great Vessels The aortic root is normal in size. The ascending aorta is mildly dilated. Aortic arch is not well visualized. IVC is normal in size and collapses >50% with inspiration. Pericardium There is no pericardial effusion. 2D Dimensions IVSD d PLAX 1.03 cm M: 0.6-1.2Ao Root d 3.46 cm M: 3.1 - 3.7 LVPW d PLAX 1.01 cm M: 0.6 - 1.2Ao Asc Diam d 3.58 cm M: 2.6 - 3.4 LVID d PLAX 4.85 cm M: 4.2 - 5.8 LVDs 3.21 cm M: 2.5 - 4.0 LV EF Teichholz 62.4 % FS33.73 % LV EDV (Teich)110.2 mL LV ESV (Teich)41.4 mL Auto EF LV EDV A4C99.1 mLLV EDV Q0S282.1 mLLV EDV BP108.1 mL LV ESV A4C43.4 mLLV ESV A2C49.2 mLLV ESV BP46.3 mL LVEF(%) A4C56.2 %LVEF(%) A2C57.2 %LVEF(%) BP57.2 % LV SV A4C55.7 mlLV SV A2C65.9 mlLV SV BP61.9 ml LV CO A4C3.9 L/minLV CO A2C4.5 L/minLV CO BP4.2 L/min HR A4C69.91 BPMHR A2C68.84 BPMLV EDV Index (BP) LV Strain Long Pk Overal Avg (s) 18.01 RV Strain Global Peak Long. Strain A4C9.87 Global Peak Long. Strain A4C FW3.96 LA Volume LA Length A4C4.7 cmLA Length A2C5.2 cm LA Area A4C s 13.62 cm2LA Area A2C s 19.35 cm2 LA Vol A4C A-L33.85 mLLA Vol A2C A-L61.06 mLLA Vol Biplane A-L48.1 mL LA Vol/BSA A4C A-LLA Vol/BSA A2C A-LLA Vol/BSA BP A-L 23.8 mL/m2 LA Vol A4C MOD31.2 mLLA Vol A2C MOD57.1 mLLA Vol BP MOD44.5 mL RA Volume RA Area A4C15.1 cm2RA ESV A4C (A-L)39.3mLRA Vol/BSA A4C A-L RA Length A4C4.9 cmRA ESV A4C (MOD)37.8mL LV Diastology MV E' medial0.070 (>0.07 m/s)MV E Vmax 0.87 (0.4-1.3 m/s) MV E/E' MED12.45 (<14)MV A Vmax 1.00 (0.4-1.3 m/s) MV E' lateral0.080 (>0.1 m/s)E/A Ratio 0.9 MV E/E' LAT10.83 (<14) MV E' Average0.075 m/s MV E/E'(average)11.58 Aortic Valve AoV Vmax1.93 m/sLVOT Vmax 1.15 m/s AoV Peak Grad27.6 mmHgLVOT Peak Grad 5.2 mmHg AoV Area (Vmax)2.11 qc9QBEB VTI0.286 m AoV VTI0.408 mLVOT Mean Grad 3.7 mmHg AoV Mean Wiley.1.28 m/sLVOT SV 101.73 mL AoV Mean Grad7.6 mmHgLVOT Diam s 2.10 cm AoV Area (VTI)2.50 cm2AV Regurg Peak Gr.40.40 mmHg Velocity Ratio 0.60 AR Decel Slope0.9m/sec2 AR DT 3556 msec AR PHT 1031 msec AR Vmax 3.18 m/s Mitral Valve MV DT 400 (160-240 msec) MV Vmax TIPS 0.92 m/s MV Mean Grad 1.4 (<2mmHg) MV VTI 0.307 m Pulmonary Valve PV Vmax 1.13 (0.5-1.5 m/s)RVOT Vmax 0.85 m/s PV Peak Grad 5.1 mmHgRVOT Peak Gr.2.9 mmHg PV Mean Vel0.84 m/sRVOT VTI0.175 m PV Mean Grad 3.1 mmHgRVOT Mean Gr.1.6 mmHg Tricuspid Valve RA Pressure 3.00 mmHgTR Vmax 2.30 m/s TV S'0.17 m/sTR Peak Grad 21.2 mmHg RVSP (TR) 24.2 mmHg Ordered By: Manuel Guerrero M.D. CC: Dictated By: Sigrid Meeks M.D. 05/17/2352 <Electronically signed by Sigrid Meeks M.D. in [place]> 05/17/23957 Transcribed By: Sigrid Meeks MD 05/17/23951 Anesthesia Assessment and Plan Anesthesia History Personal History: No History of Anesthesia Complications Family History: No Family History of Anesthesia Complications Exercise Tolerance Exercise Tolerance: Metabolic Equivalents>4 Pertinent Negatives Pertinent Negatives: No Symptoms of GERD, No Major Cardiovascular Symptoms or Complaints and No History of CVA/TIA Cardiac & Pulmonary Exam Cardiac Exam: Normal S1/S2 Heart Sounds Pulmonary Exam: Clear Bilateral Breath Sounds Implantable Cardiac Device Does patient have a Pacemaker or an ICD?: No Airway Exam Known Difficult Airway: No Mallampati Class: 2 Mouth Opening: Normal (> 3cm) Thyromental Distance: Greater than 3 cm Neck Range of Motion: Full ROM Neck Circumference: Normal Teeth Condition: Loose or Chipped (#11 chipped) Tooth Numberin 1. Chipped ASA Classification ASA Score: ASA 2 Emergency Case?: No NPO Status NPO Status: NPO Clears >2 hours, Solids >8 hours Anesthesia Plan Resuscitation Status: Full Code Anesthesia Technique: Spinal Anesthesia Airway Planned: Natural Airway Pain Management: Surgeon and patient request nerve block Monitors Used: Standard Monitors
[2024-02-11] MEDS: Gabapentin 300 MG CAP PO (09:14)
[2024-02-11] MEDS: Celecoxib 200 MG CAP 400 MG PO (09:14)
[2024-02-11] MEDS: Acetaminophen 500 MG TAB 1000 MG PO (09:14)
[2024-02-11] MEDS: Lactated Ringers 500 ML 80 ML IV (09:40)
[2024-02-11] MEDS: ceFAZolin 2 GM/50 ML BAG IVPB (10:40)
[2024-02-11] MEDS: TRANEXAMIC ACID/SOD. CHL. 1,000 MG/100 ML BAG 600 MG IVPB (10:46)
--- NOTE | 2024-02-11 10:58 | W.ANESNERVE ---
Nerve Block Single Injection Procedure Date and Time Date Performed: 02/11/24 Procedure Start: 10:07 Location Where Procedure Performed Procedure Location: Day Surgery Unit Reason Performed: Postoperative Analgesia Requesting Provider: Manish Roberts Timeout Performed Timeout Performed: Yes Monitoring Used ECG, Blood Pressure and SpO2 Sterility Sterility: Hand Hygiene, Surgical Cap, Surgical Mask, Sterile Gloves and Chlorhexidine Sedation Given During Procedure Sedation Given (Indicate Dose Given): No Sedation given Patient Mental Status Patient Mental Status: Awake Nerve Block 1st Nerve Block: Laterality: Left Block Type: Adductor Canal Ultrasound Image Saved?: Yes Needle / Catheter Used: 100mm SonoPlex II Local Anesthetic Bolus (Indicate Dose Given): Lidocaine used for local infiltration of skin, Injected in 3-5ml increments after negative blood aspiration and Bupivacaine 0.25% Dose:: 10 mL, 25 mg Additives (Indicate Dose Given): None Ultrasound: Sterile probe cover and gel used Nerve Stimulator: Supplement to Ultrasound use and No twitch or parasthesia noted < 0.5 mA Paresthesia: None Procedure Tolerated: No Complications and Patient tolerated well Procedure Outcome: Successful Performed By: Sherif Trevino Supervised By: Dc Stratton
--- NOTE | 2024-02-11 11:51 | ROE_ITS ---
Date of service: 02/11/24 Time of Service: 10:30 Operative Note Operative Note DATE OF PROCEDURE: 02/11/24 PRE-OP DIAGNOSIS: Left Knee Osteoarthritis POST-OP DIAGNOSIS: same PROCEDURE: Left Total Knee Replacement SURGEON: Manish Roberts GENERAL ACCOUNTING CLERK: Naty Mishra ANESTHESIA TYPE: Spinal Refer to Anesthesia Record ESTIMATED BLOOD LOSS: 50 PATHOLOGY: none sent TOURNIQUET TIME: 0 COMPLICATIONS: None Patient was transported to: PACU Patient's condition: stable Implants: 1. Depuy Attune Cementless Cruciate Retaining Femoral Component, Size 6 2. Depuy Attune Cementless Fixed Bearing Tibial Component, Size 6 3. Depuy Attune 6x7mm CR/FB Poly 4. Depuy Attune Patellar Component, Size 35 Indications: I have seen Jaswant in clinic for symptoms of knee arthritis, confirmed with radiographic findings. He has exhausted nonoperative methods and was having significant limitations in daily function and desired better function and less pain. I discussed the technical details of a knee replacement. I explained the risks of the procedure to include, but not limited to, bleeding, infection, pain, stiffness, fracture, damage to nerves and vessels, damage to muscles and tendons, loosening, need for repeat procedure, blood clot and cardiopulmonary demise. Despite these risks, Jaswant elected to proceed. Findings: There was notable arthritis seen focally about the medial femur with complete loss of cartilage down to bone. More milder chondromalacia was seen laterally and in the patellofemoral compartment. Procedure Description: Jaswant was greeted in the preoperative holding area where the correct side was identified and marked. The consent was reviewed with the patient and signed. The history and physical was updated. All questions were answered. Preoperative medications were administered: Acetaminophen 1000mg, Celebrex 400mg, and Gabapentin 300mg. An adductor canal block was then administered by the anesthesia team in the D[facility]. Jaswant was taken back to the operating room. A spinal anesthestic was then administered. The patient was placed into the supine position on the operating room table. Posts were placed for positioning during the procedure. All bony prominences were well padded. Prophylactic antibiotics in the form of Cefazolin were administered. 1g of Tranxemic Acid was given intravenously within 30 minutes of incision. The left leg was then prepped with Chloraprep and draped in a standard fashion with impervious stockinette. A second prep with Chloraprep was performed prior to application of Iodine impregnated skin protection. A timeout to confirm correct identity, side and site, procedure, allergies, anesthesia, and medical concerns was performed. With the knee in some flexion, a midline incision was made overlying the knee. Full thickness skin flaps were raised once the extensor mechanism was encountered. These were raised medially and laterally. Any bleeding was controlled with electrocautery. Once the extensor mechanism was fully exposed, a medial parapatellar arthrotomy was performed in a flexed position. All bleeding from the arthrotomy and the geniculate arteries was coagulated. A medial subperiosteal peel was performed with electrocautery to the midcoronal plane. The fat pad was removed while keeping the patellar tendon protected. The anterior distal femur synovium was removed for later visualization. The ACL and PCL were resected and the anterior horn of the lateral meniscus was transected. The knee was then flexed with the patella everted. There was a notable swath of complete loss of cartilage and exposed bone about the medial aspect of the distal?medial femur Using a step drill, and based on preoperative templating, the femoral canal was entered. This was done with a step drill without any difficulty. The intramedullary distal femoral cut guide was inserted, set to a 5 degree valgus cut and 9mm cut thickness. The distal femoral cut guide was then held in position and pinned. With the soft tissues protected, the distal cut was performed. This was passed over a few times to ensure a planar cut. I then turned attention to the tibia. The extramedullary guide was placed onto the leg. The distal aspect was slid medial to adjust for position of center of ankle and stay in line with shaft of the tibia. Approximately 3-5 degrees of posterior slope was kept in the proximal cutting guide. The center of the guide was aligned with the PCL. The stylus was used to assess cut thickness. The medial side, most involved side, was set for a 6mm cut, corresponding to 9mm laterally. This was then held in position and pinned into place with 2 additional pins and a cross pin for stability. The medial and lateral collateral ligaments were protected and the cut was performed. With this completed, it was assessed and noted to be of appropriate dimensions. The guide was removed. A spacer block was inserted and the knee was brought into extension. The 6mm spacer block provided full extension, without hyperextension and with stability of both the medial and lateral collateral ligaments was assessed. The pins from the femur and the tibia were then removed. The distal femur was then sized. The anterior stylus was placed onto the lateral ridge of the anterior femur. This indicated a size 6 femur. The external rotation of the guide was adjusted to 3 degrees to match the epicondylar axis, perpendicular to Gabriella?s line. The 4-in-1 cutting guide was the placed. The posterior medial femur cut was evaluated and appeared of good thickness. The spacer block was inserted underneath the cutting guide and stability was confirmed in 90 degrees of flexion. An leesa wing was used to confirm appropriate position of the anterior cut to avoid notching. This cutting guide was ensured to be flush on the cut surface and then pinned into place with headed pins. While protecting the soft tissues, quad tendon, and collateral ligaments, the anterior and posterior cuts were performed with a saw. The central two pins were removed and the posterior and anterior chamfers were cut next. The notch-cutting guide was placed. This was pinned to lateralize the femoral component as much as possible while keeping it flush on the cut surface. This was then pinned into position. A reciprocating saw was used to make the notch cut. A rasp smoothed the cut surfaces. The medial and lateral menisci were removed. A trial femoral component was then inserted, impacted down to the cut surfaces, and the lug holes were drilled. A provisional trial tibial component was placed and the knee was brought through range of motion. The polyethylene was trialed until there was good flexion and extension with excellent stability to the medial and lateral collaterals. The patella was tracking without thumbs. A size 7mm polyethylene component provided the best range of motion and stability with less than 2mm gapping with medial and lateral stress and full extension without significant hyperextension. The tibial cut surface was fully exposed. The tibia was then sized as a 6. The tibia had been previously marked during trialing to correspond to the center of the tibial component to help with rotation. The trial was aligned to this roxane, approximately rotated to the medial 1/3rd of the tibial tubercle. The trial was pinned into place. The tibia was prepared with a reamer and a keel punch and lug holes. The knee was then brought into extension and the patella was measured as 26mm. Using the patellar clamp and cut guide, this was resected to a flat surface with at least 13mm of thickness remaining. The size 35 patella fit the best. This was oriented and then clamped into position. The lugs were drilled. The trial components were removed. The final components were opened on the back table. The periosteal and capsular tissues, especially posteriorly, around the knee were then systematically injected with a periarticular cocktail consisting of 246mg of Ropivacaine, 0.5mg of Epinephrine, 0.08mg of Clonidine, and 30mg of Ketorolac, diluted to 100cc. On the back table, with the implants opened, the cement was mixed. One batch of high viscosity cement was prepared with vacuum assistance. After the cement was ready a small amount was placed on the cut surface of the patella and the patellar button was clamped into position and held. While the cement was hardening, the cementless knee components were placed. Starting with the tibial component, the tibia was subluxed anteriorly and the lug holes of the component were lined up. The tibia was then impacted with an impactor and mallet until the tibial component was in contact with the tibia. The final polyethylene component was inserted. Then, the femoral component was inserted. The lug holes were aligned and the component was impacted into position. The knee was irrigated with Surgiphor Betadine solution. This was allowed to sit in the knee for 3 minutes and then it was irrigated out with saline. After the cement had finally cured, approximately 15min, the clamp was removed from the patella and the knee was taken through range of motion. The patella was tracking with a no-thumbs technique. The capsule was then reapproximated with a No. 1 Vicryl at multiple locations. The capsule was finally closed with a No. 2 Stratafix, barbed suture. The second dosing of 1g TXA was started. Deep tissues were then reapproximated with 0 Vicryl and 2-0 Vicryl. The skin was closed with a running 3-0 Monocryl in a subcuticular fashion. This was reinforced with skin glue. A Mepilex silver dressing was applied along with a [id number] BRITANY wrap. A CryoCuff was applied. Jaswant was transferred to the hospital bed without difficulty an suffering no apparent complication. Jaswant has a good prognosis. Physical therapy will start today and without restrictions, weight-bearing as tolerated. Aspirin 81mg BID will be used for DVT prophylaxis.
--- NOTE | 2024-02-11 13:14 | W.ANESPOSTOP ---
Postoperative Evaluation Date, Time and Location Date Performed: 02/11/24 Time Performed: 13:14 Patient Location: Day Surgery Unit Vital Signs Most Recent Imported Vital Signs: Most Recent Vital Signs Temp Pulse Resp BP Pulse Ox 36.3 C L 72 17 115/63 93 02/11/24 12:43 02/11/24 12:43 02/11/24 12:43 02/11/24 12:43 02/11/24 12:43 Pain Score Most Recent Pain Score: Most Recent Pain Score Pain Level 0 02/11/24 12:43 Assessment Mental Status: Awake (Alert & Oriented to Patient Baseline) Airway and Respiratory Function: Patent airway with normal (patient baseline) respiratory exam Cardiovascular Function: Hemodynamically Stable Hydration Status: Adequately Hydrated Nausea & Vomiting: No Nausea or Vomiting Pain: Pt. Denies Any Pain Peripheral Nerve Block: Regional nerve block not resolved at time of post operative discharge
[2024-02-11] MEDS: oxyCODONE 5 MG TAB PO (14:04)
--- NOTE | 2024-02-11 14:58 | IN_ITS ---
PT Notes Visit Reasons: Left knee DJD Physical Therapy Day Surgery Initial Evaluation Date: 02/11/2024 Referring Doctor: Dr. Roberts PT Orders: PT CONSULT: Status post Ortho surgery Precautions: Weightbearing as tolerated left lower extremity,TEDS x 2 weeks Patient Profile/Admitting Diagnosis: Patient is 73-year-old male presenting status post elective left TKA secondary to DJD under spinal anesthesia by Dr. Roberts on 02/11/2024 . PMHX: OA right knee, right rotator cuff tear, right proximal bicep tendon rupture, AC joint OA, heart murmur Social History/Home Situation: Patient resides at home with his 2 steps to enter through garage. 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 He reported pain as a 4 when seated at edge of bed Objective: General Observation: Awake male supine on stretcher Cryo/Cuff to left knee visiting at bedside. personal FWW present In room Mental Status: Alert and oriented x 4 Pain: 5/10 left knee after ambulation (patient declined pain med prior to session) ROM: Right Upper Extremity: WFL Left Upper Extremity: WFL Right Lower Extremity: WNL Left Lower Extremity: WNL except left knee 8-88 degrees Strength: Right Upper Extremity:4/5 Left Upper Extremity: 5/5 Right Lower Extremity: 5/5 Left Lower Extremity: Hip flexion: 3/5; hip abduction: 3/5; hip extension: 3 - /5; knee extension: 3 -/5; knee flexion: 2+/5 ankle DF: 3/5 ; ankle PF: 3/5 Sensation: Intact Bed Mobility/Transfers: Supine to sit independent Sit to stand supervision with cues for hand placement Stand to sit supervision with cues for hand placement Bed to chair supervision with FWW and cues for sequencing and safe approach to surface Gait: Ambulate 150 feet with FWW level surfaces including turns demonstrating the following deviations: Excessive weightbearing through upper extremities to unweight left lower extremity, decreased left knee flexion during swing phase, shortened step length, early heel off left Stairs: Four 6 inch steps with rail supervision and verbal cues for sequencing and to hold left knee extension/tighten thigh muscle step to pattern Balance: Static Sitting: Good Dynamic Sitting: Fair plus Static Standing: Good with FWW Dynamic Standing: Fair+ Special Tests: Mobility Limitations Standardized Measure [facility] 6 clicks Basic Mobility Inpatient Short Form: Raw Score: 21 CMS Score:28.97% Informed Consent/Education: Patient instructed in purpose of PT consult. Packet containing TKA exercise protocol has been given to patient. Education and training on initial set of exercises that can be done at home have been completed with patient. Assessment: Patient presents with clinical signs and symptoms consistent with current/admitting diagnoses that have resulted to mobility limitations, gait instability, generalized weakness, and impairment of motor control as demonstrated by the following impairment level findings: 1. Decreased strength to left knee major muscle groups 2. Impaired standing balance 3. Limitation of joint range of motion in left knee 4. Increased pain left knee Impairments are contributing to the following functional limitations: 1. Inability to safely ambulate without assistive device 2. Increase completion time for mobility ADL performance 3. Increased fall risk 4. Decline in ability to perform stairs independently Patient is assessed as a moderate complexity based on the following: History: 73-year-old male with impairment level findings, functional limitations, and past medical history as indicated above Examination: Demonstrable impairment in strength, balance, and mobility level with underlying impairments and functional limitations as documented above Presentation: evolving Decision Making: moderate Goals: N/A. Plan of Care/Treatment Plan: N/A. DISCHARGE RECOMMENDATIONS: Home withHEP and Outpatient PT as scheduled TREATMENT CODE/TIME: 67660 x 25 mins for 1 unit/ [id number] Thank you for the opportunity to participate in the care of this patient. Adia Welch PT Please sign an return this page within 30 days if you agree with the above POC. Thank you! Physician Signature Date [facility]
== END 2024-02-11 15:08 | disposition home or self-care (01) ==
LOC: SUR 08:22
PROVIDERS: PCP Nurse Practitioner Pediatrics; Visit Provider Student in an Organized Health Care Education/Training Program
PROC: (CPT 27447; principal; 2024-02-11 11:00)
DX: M17.12 Unilateral primary osteoarthritis, left knee (principal); I12.9 Hypertensive chronic kidney disease with stage 1 through stage 4 chronic kidney disease, or unspecified chronic kidney disease; E78.5 Hyperlipidemia, unspecified; N18.9 Chronic kidney disease, unspecified; G47.33 Obstructive sleep apnea (adult) (pediatric); G89.18 Other acute postprocedural pain
CPT/HCPCS: 27447; 64447; 97162; C1776; J0665; J0690; J1100; J2405; J2704

== ENCOUNTER 2024-02-24 15:49 | Outpatient (CLI) | payer MEDICARE, SELFPAY ==
--- NOTE | 2024-02-24 12:15 | DI.RAD_ITS ---
Exam(s) XR KNEE LT 1V XR STANDING ALIGNMENT EXAM: XR STANDING ALIGNMENT and XR knee LT 1 V CLINICAL HISTORY: 1ST POST OP S/P L TKA. TECHNIQUE: 2D digital imaging was performed. Five images were obtained. COMPARISON: CR XR KNEE LT 1V from 01/27/2024 CR XR STANDING ALIGNMENT from 01/27/2024 FINDINGS: BONES: The hips are well maintained. The patient is now status post left total knee arthroplasty. T he orthopedic hardware appears in good position. No suspicious lucencies are seen around the orthope dic hardware. There is moderate narrowing of the medial femoral tibial joint in the right knee. The ankles are well maintained.There is no significant leg length discrepancy. SOFT TISSUE: Atherosclerotic calcification is present. IMPRESSION: Interval placement of a left total knee arthroplasty. DATA REPOSITORY: RADIATION DOSE DELIVERED:
== END 2024-02-24 15:50 | disposition home or self-care (01) ==
LOC: DIORS 15:50
PROVIDERS: PCP Nurse Practitioner Pediatrics; Visit Provider Student in an Organized Health Care Education/Training Program
DX: Z96.652 Presence of left artificial knee joint (principal); Z47.1 Aftercare following joint replacement surgery
CPT/HCPCS: 99024; 73560; 77073

== ENCOUNTER → 2024-03-24 09:04 | Outpatient (BNVA) | payer MEDICARE, SELFPAY | PROVIDERS: PCP Nurse Practitioner Pediatrics; Visit Provider Physician Assistant | DX: Z47.1 Aftercare following joint replacement surgery (principal); Z96.652 Presence of left artificial knee joint | CPT/HCPCS: 99024 ==

== ENCOUNTER → 2024-04-23 09:59 | Outpatient (BNVA) | payer MEDICARE, SELFPAY | PROVIDERS: PCP Nurse Practitioner Pediatrics; Referring Provider Nurse Practitioner Pediatrics; Visit Provider Student in an Organized Health Care Education/Training Program | DX: Z47.1 Aftercare following joint replacement surgery (principal); Z96.652 Presence of left artificial knee joint | CPT/HCPCS: 99024 ==

== ENCOUNTER 2025-02-11 14:50 | Outpatient (CLI) | payer MEDICARE, SELFPAY ==
--- NOTE | 2025-02-11 09:45 | DI.RAD_ITS ---
Exam(s) XR KNEE LT 2V AP,LAT EXAM: XR KNEE LT 2V AP,LAT CLINICAL HISTORY: ANNUAL F/U L TKA. TECHNIQUE: 2D digital imaging was performed. COMPARISON: CR XR KNEE LT 1V from 02/24/2024 FINDINGS: Two views There is continued stable position alignment of the components of the prosthesis. No fractures nor loosening evident. No evidence of osteomyelitis. IMPRESSION: Stable satisfactory appearance DATA REPOSITORY: RADIATION DOSE DELIVERED:
== END 2025-02-11 14:51 | disposition home or self-care (01) ==
LOC: DIORS 14:51
PROVIDERS: PCP Nurse Practitioner Pediatrics; Visit Provider Physician Assistant
DX: Z47.1 Aftercare following joint replacement surgery (principal); Z96.652 Presence of left artificial knee joint
CPT/HCPCS: 99024; 73560